=== PATIENT | female | born 1970 | race Caucasian/White ===

== ENCOUNTER 2019-07-26 18:10 | Inpatient (IN) | payer OTHER ==
[~2019-07-26] VITALS: Ht 160 cm; Wt 93.9 kg
--- NOTE | 2019-07-26 18:25 | NUR ---
ED Nurse Note: pt arrives from work via [employer] for syncope and rectal bleeding x 3-4 episodes today. pt arrives with pale skin signs and nausea. no active vomiting or rectal bleeding upon arrival. does state abd cramping and some bloating. abd soft slightly tender with palp pt relates bright red blood in large amt with small amt diarrhea. lungs cta
--- NOTE | 2019-07-26 18:45 | NUR ---
pt's PCP is Dr. Yefri Love [facility]. telephone number: [phone]
[2019-07-26 18:46] VITALS: BP 129/82
[2019-07-26 18:47] LABS: ANION GAP 10 mmol/L (5-15); BLOOD UREA NITROGEN 7 mg/dL (7-18); CALCIUM 9.1 MG/DL (8.5-10.1); CARBON DIOXIDE 26 MMOL/L (21-32); CHLORIDE 107 MMOL/L (98-107); CREATININE 0.8 MG/DL (0.55-1.30); POTASSIUM 3.6 MMOL/L (3.5-5.1); SODIUM 143 MMOL/L (136-145)
[2019-07-26 18:49] LABS: INR 0.9 (0.9-1.1)
[2019-07-26 19:01] LABS: ALANINE AMINOTRANSFERASE 67 U/L (12-78); ALBUMIN 3.5 G/DL (3.4-5.0); ALBUMIN/GLOBULIN RATIO 1.1 (1.0-2.7); ALKALINE PHOSPHATASE 81 U/L (46-116); ASPARTATE AMINO TRANSFERASE 42 U/L (15-37); BILIRUBIN,TOTAL 0.4 MG/DL (0.2-1.0); CKMB < 0.5 NG/ML (0.0-3.6); CREATINE KINASE 32 U/L (26-308)
[2019-07-26 19:04] LABS: BASOPHILS % (AUTO) 0.8 % (0.0-2.0); EOSINOPHILS % (AUTO) 1.7 % (0.0-3.0); HEMATOCRIT 33.6 % (37.0-47.0); HEMOGLOBIN 12.3 G/DL (12.0-16.0); LYMPHOCYTES % (AUTO) 21.7 % (20.0-45.0); MEAN CORPUSCULAR VOLUME 81 FL (80-99); MONOCYTES % (AUTO) 5.6 % (1.0-10.0); NEUTROPHILS % (AUTO) 70.2 % (45.0-75.0); PLATELET COUNT 217 K/UL (150-450); RED BLOOD COUNT 4.13 M/UL (4.20-5.40); RED CELL DISTRIBUTION WIDTH 10.9 % (11.6-14.8); WHITE BLOOD COUNT 14.1 K/UL (4.8-10.8)
--- NOTE | 2019-07-26 19:15 | NUR ---
ED Nurse Note: Recieved pt on robert awake, alert and oriented x 4, pt here with c/o lower gi bleed and near syncopal episode, pt is on cardiac monitioring,, v/s stable, patent iv line in right ac, pt ahs mild abdominal pain at 7/10, no cp, no sob, spouse at bedside, will resume care as ordered as pt waits for results and disposition.
[2019-07-26 20:30] VITALS: BP 133/83
[2019-07-26] MEDS ORDERED: Isovue-300 100ml vial INJ PRN (20:45)
--- NOTE | 2019-07-26 22:00 | Emergency Room Report ---
History of Present Illness General Chief Complaint: Gastrointestinal Bleed Source: Patient Present Illness HPI This patient states that today she noted multiple episodes of bright red blood with a couple bowel movements. She states that there was a large amount of blood. She states that she was at work and she developed some cramping in her abdomen and then became lightheaded and had a syncopal episode. She did not have trauma. She denies pain at this time. She denies recent illness. She denies diarrhea. She denies travel out of the country. She has no other complaints. Allergies: Coded Allergies: CODEINE (Verified Allergy, Unknown, 07/26/19) NAPROXEN (Verified Allergy, Unknown, 07/26/19) Patient History Past Medical History: none, see triage record Social History: Denies: smoking, alcohol use, drug use Last Menstrual Period: 07/05/19 Now: No Reviewed Nursing Documentation: PMH: Agreed; PSxH: Agreed Nursing Documentation-PMH Past Medical History: No History, Except For History Of Psychiatric Problem: Yes - BIPOLAR Review of Systems All Other Systems: negative except mentioned in HPI Physical Exam Vital Signs Date Time Temp Pulse Resp B/P (MAP) Pulse Ox O2 Delivery O2 Flow Rate FiO2 07/26/19 18:07 98.8 98 18 134/88 (103) 99 Room Air Sp02 EP Interpretation: reviewed, normal General Appearance: no apparent distress, alert, GCS 15, non-toxic Head: normocephalic, atraumatic Eyes: bilateral eye normal inspection, bilateral eye PERRL ENT: hearing grossly normal, normal pharynx, no angioedema, normal voice Neck: full range of motion, supple/symm/no masses Respiratory: chest non-tender, lungs clear, normal breath sounds, no respiratory distress, no retraction, no accessory muscle use, speaking full sentences Cardiovascular #1: regular rate, rhythm, no edema Gastrointestinal: normal bowel sounds, soft, non-distended, no guarding, no rebound, tenderness - TTP in the LLQ Rectal: other - Bright red blood in rectal vault Musculoskeletal: back normal, gait/station normal, normal range of motion, non- tender Neurologic: alert, oriented x3, responsive, motor strength/tone normal, sensory intact, speech normal Psychiatric: judgement/insight normal, memory normal, mood/affect normal, no suicidal/homicidal ideation Skin: no rash, rash Medical Decision Making Diagnostic Impression: Primary Impression: Bright red blood per rectum Additional Impressions: Diverticulitis Lower GI bleed ER Course This patient presented with abdominal cramping and bright red blood per rectum. Patient was mildly tender to palpation on exam. Initial labs are unremarkable with no anemia. The patient underwent CT of the abdomen pelvis for abdominal pain and was found to have diverticulitis. I did do a rectal exam the patient had a significant amount of bleeding rectally. Although, the patient's hemoglobin and hematocrit were normal at that time I was concerned this patient could decompensate given the amount of blood identified on rectal exam. The patient was admitted for further monitoring and evaluation by GI for a lower GI bleed and diverticulitis. Laboratory Tests Test 07/26/19 18:21 07/26/19 21:45 White Blood Count 14.1 K/UL (4.8-10.8) H Red Blood Count 4.13 M/UL (4.20-5.40) L Hemoglobin 12.3 G/DL (12.0-16.0) Hematocrit 33.6 % (37.0-47.0) L Mean Corpuscular Volume 81 FL (80-99) Mean Corpuscular Hemoglobin 29.7 PG (27.0-31.0) Mean Corpuscular Hemoglobin Concent 36.5 G/DL (32.0-36.0) H Red Cell Distribution Width 10.9 % (11.6-14.8) L Platelet Count 217 K/UL (150-450) Mean Platelet Volume 6.9 FL (6.5-10.1) Neutrophils (%) (Auto) 70.2 % (45.0-75.0) Lymphocytes (%) (Auto) 21.7 % (20.0-45.0) Monocytes (%) (Auto) 5.6 % (1.0-10.0) Eosinophils (%) (Auto) 1.7 % (0.0-3.0) Basophils (%) (Auto) 0.8 % (0.0-2.0) Prothrombin Time 9.6 SEC (9.30-11.50) Prothrombin Time INR 0.9 (0.9-1.1) PTT 24 SEC (23-33) Sodium Level 143 MMOL/L (136-145) Potassium Level 3.6 MMOL/L (3.5-5.1) Chloride Level 107 MMOL/L (98-107) Carbon Dioxide Level 26 MMOL/L (21-32) Anion Gap 10 mmol/L (5-15) Blood Urea Nitrogen 7 mg/dL (7-18) Creatinine 0.8 MG/DL (0.55-1.30) Estimate Glomerular Filtration Rate > 60 mL/min (>60) Glucose Level 143 MG/DL (74-106) H Calcium Level 9.1 MG/DL (8.5-10.1) Total Bilirubin 0.4 MG/DL (0.2-1.0) Aspartate Amino Transferase (AST) 42 U/L (15-37) H Alanine Aminotransferase (ALT) 67 U/L (12-78) Alkaline Phosphatase 81 U/L (46-116) Total Creatine Kinase 32 U/L (26-308) Creatine Kinase MB < 0.5 NG/ML (0.0-3.6) Creatine Kinase MB Relative Index 1.5 Troponin I 0.000 ng/mL (0.000-0.056) Total Protein 6.8 G/DL (6.4-8.2) Albumin 3.5 G/DL (3.4-5.0) Globulin 3.3 g/dL Albumin/Globulin Ratio 1.1 (1.0-2.7) Urine Color Pale yellow Urine Appearance Clear Urine pH 6.5 (4.5-8.0) Urine Specific [place] 1.005 (1.005-1.035) Urine Protein 1+ (NEGATIVE) H Urine Glucose (UA) Negative (NEGATIVE) Urine Ketones Negative (NEGATIVE) Urine Blood 5+ (NEGATIVE) H Urine Nitrite Negative (NEGATIVE) Urine Bilirubin Negative (NEGATIVE) Urine Urobilinogen Normal MG/DL (0.0-1.0) Urine Leukocyte Esterase Negative (NEGATIVE) Urine RBC Pending Urine WBC Pending Urine Squamous Epithelial Cells Pending Urine Bacteria Pending Urine Opiates Screen Pending Urine Barbiturates Screen Pending Phencyclidine (PCP) Screen Pending Urine Amphetamines Screen Pending Urine Benzodiazepines Screen Pending Urine Cocaine Screen Pending Urine Marijuana (THC) Screen Pending EKG Diagnostic Results Rate: normal Rhythm: NSR ST Segments: no acute changes Rhythm Strip Diag. Results EP Interpretation: yes Rate: 80's Rhythm: NSR, no PVC's, no ectopy CT/MRI/US Diagnostic Results CT/MRI/US Diagnostic Results : Imaging Test Ordered: CT abd/pelvis Impression Impression: Somewhat unusual appearing isolated sigmoid diverticula with slight stranding of the peridiverticular fat, suspicious for early acute diverticulitis Enlarged fatty liver Borderline splenomegaly Incidental finding of small exophytic uterine fibroid This agrees with the preliminary interpretation provided overnight by [facility] service. Last Vital Signs Date Time Temp Pulse Resp B/P (MAP) Pulse Ox O2 Delivery O2 Flow Rate FiO2 07/26/19 18:46 88 15 Room Air 07/26/19 18:46 129/82 99 07/26/19 18:07 98.8 Status: improved Disposition: ADMITTED INPATIENT Condition: Serious Scripts Ciprofloxacin (CIPRO) 500 Mg/5 Ml Isabel.mc.rec 500 MG PO EVERY 12 HOURS for 10 Days, CAP Prov: Nakul George MD 07/30/19 Metronidazole* (FLAGYL*) 500 Mg Tablet 500 MG ORAL Q8HR for 10 Days, TAB Prov: Nakul George MD 07/30/19 Referrals: NOT CHOSEN IPA/,REFERRING (PCP) Lisa Sims DO Jul 26, 2019 22:00
--- NOTE | 2019-07-26 22:00 | NUR ---
ED Nurse Note: Pt continues to rest inb ed,a wake and alert, states pain levels increasing and asking for pain meds, pt medicated as ordered, no cp, no sob, pt given iv antibiotics, tolerating well, no s/s opf adverse reaction noted, site intact and patent, pt to be admitted to hospital, will continue to closely monitor and send to floor bed when available.
[2019-07-26 22:09] LABS: APPEARANCE,URINE CLEAR; BILIRUBIN, URINE NEGATIVE (NEGATIVE); COLOR,URINE PALE YELLOW; GLUCOSE, URINE (UA) NEGATIVE (NEGATIVE); KETONES,URINE NEGATIVE (NEGATIVE); LEUKOCYTE ESTERASE ,URINE NEGATIVE (NEGATIVE); NITRITE,URINE NEGATIVE (NEGATIVE); PH,URINE 6.5 (4.5-8.0); PROTEIN,URINE 1+ (NEGATIVE); UROBILINOGEN,URINE NORMAL MG/DL (0.0-1.0)
[2019-07-26 22:30] VITALS: BP 124/71
--- NOTE | 2019-07-26 22:32 | Diagnostic Imaging Report ---
Clinical Indication: Abdominal pain and rectal bleeding Technique: No oral contrast utilized, per emergency room physician request IV administration nonionic contrast. Venous phase spiral acquisition obtained through the abdomen and pelvis. Multiplanar reconstructions were generated. Total dose length product 960 mGycm. CTDIvol(s) 18 mGy. Dose reduction achieved using automated exposure control Comparison: none Findings: At the level of the mid sigmoid, there is what may be an unusual appearing diverticulum, with associated slight stranding of the perisigmoid fat. No other diverticula demonstrated. The appendix is not definitely visualized, but no findings to suggest acute appendicitis are evident. No small bowel distention. No free or loculated intraperitoneal gas or fluid is evident. The distal esophagus, stomach, duodenum are unremarkable. The liver is markedly enlarged. There is diffuse low-attenuation, consistent with fatty change. No focal abnormality. There is some sparing in segment 5 laterally. The gallbladder, bile ducts, pancreas are unremarkable. The spleen is enlarged, measuring 14.3 cm long axis dimension. The adrenals and kidneys are unremarkable. There are numerous but nonenlarged retroperitoneal nodes demonstrated. No pelvic mass or adenopathy. There is a small exophytic fibroid coming off of the uterus. The bladder is unremarkable. The included lung bases are clear. The bones are unremarkable. Impression: Somewhat unusual appearing isolated sigmoid diverticula with slight stranding of the peridiverticular fat, suspicious for early acute diverticulitis Enlarged fatty liver Borderline splenomegaly Incidental finding of small exophytic uterine fibroid This agrees with the preliminary interpretation provided overnight by [facility]. The CT scanner at [facility] is accredited by the [employer] and the scans are performed using protocols designed to limit radiation exposure to as low as reasonably achievable to attain images of sufficient resolution adequate for diagnostic evaluation.
[2019-07-26] MEDS ORDERED: metroNIDAZOLE 500mg tab ORAL ONE (22:45)
--- NOTE | 2019-07-26 22:45 | NUR ---
Registration notified of the admission.
[2019-07-26] MEDS ORDERED: LITHIUM CARBON300 MG ORAL (23:05)
[2019-07-26] MEDS ORDERED: ZYPREXA10 MG ORAL (23:12)
[2019-07-26] MEDS ORDERED: SERTRALINE20 MG/1 M1 PO (23:12)
[2019-07-27] MEDS ORDERED: Morphine Sulfate 4mg/ml Inj (IV USE ONLY) IVP ONE
--- NOTE | 2019-07-27 00:25 | NUR ---
ED Nurse Note: Pt being admitted to floor bed, report called to floor nurse BRETT Murphy, pt in bed awake and alert, iv site patent, belongings list completed and med rec, pt being taken to floor bed via gurney with nilda-faustino bland noted during pt transport.
[2019-07-27 00:30] VITALS: BP 121/77
--- NOTE | 2019-07-27 01:10 | NUR ---
NURSE NOTES: Received pt from [facility], ED. Pt arrived to unit @0055. Pt transferred into bed in room 410-2. AAO x 4, on room air. Ambulatory. is at bedside. Vitals obtained 98.3F, 89HR, 17RR, 100% O2, 121/77 BP. Assessment done. No c/o pain. No respiratory distress noted. Skin is intact. IV L AC 18G intact and patent. Meds recon done. All belongings reviewed and will be sent with except cell phone. Received order from Dr. Lancaster and carried out. Pt is on NPO except meds. Bed locked, lowest position, alarm on, side rails up x 2, call light within reach. Will continue to monitor.
[2019-07-27] MEDS ORDERED: Morphine Sulfate 2mg/ml Inj(IV/IM USE ONLY) IVP PRN (01:30)
[2019-07-27] MEDS ORDERED: Morphine Sulfate 4mg/ml Inj (IV USE ONLY) IVP PRN (01:30)
[2019-07-27] MEDS: cefTRIAXone 1 GM in D5W 55 ML IVPB SCH (03:37)
[2019-07-27 04:00] VITALS: BP 169/99
--- NOTE | 2019-07-27 06:32 | NUR ---
NURSE NOTES: will bring [place] to verify with pharmacy.
--- NOTE | 2019-07-27 07:03 | NUR ---
NURSE NOTES: Left message Dr. Lancaster that pt BP 171/112 @0000, 166/95 @0600. Also, pt has allergy to Codenine and she feels agitation after receiving Morphine from ED. She doesn't want Morphine.
[2019-07-27 07:23] LABS: BASOPHILS % (AUTO) 0.6 % (0.0-2.0); EOSINOPHILS % (AUTO) 1.1 % (0.0-3.0); HEMATOCRIT 30.1 % (37.0-47.0); HEMOGLOBIN 10.2 G/DL (12.0-16.0); LYMPHOCYTES % (AUTO) 17.4 % (20.0-45.0); MEAN CORPUSCULAR VOLUME 87 FL (80-99); MONOCYTES % (AUTO) 5.2 % (1.0-10.0); NEUTROPHILS % (AUTO) 75.7 % (45.0-75.0); PLATELET COUNT 183 K/UL (150-450); RED BLOOD COUNT 3.47 M/UL (4.20-5.40); RED CELL DISTRIBUTION WIDTH 11.5 % (11.6-14.8)
--- NOTE | 2019-07-27 07:30 | NUR ---
NURSE NOTES: Received pt from BRETT CARPIO. pt is alert and orient x4. pt is in RA, no SOB or acute respiratory distress noted. pt has intact iv access LAC 18g SL. Pt is aware abbout to be NPO. Dr GODWIN notified about HB 10.2 and other lab results and V/S, No new order to RN. all needs attended, bed is locked and is in the lowest position. SCD is on. call light within easy reach. will continue to monitor. Will continue to monitor.
--- NOTE | 2019-07-27 07:32 | NUR ---
NURSE NOTES: Received call from Dr. Lancaster and order. DC Morphine and Clonidine 0.1mg PO Q4 PRN for >160 systole
[2019-07-27 07:46] LABS: INR 0.9 (0.9-1.1)
--- NOTE | 2019-07-27 07:50 | NUR ---
HAND-OFF: Report given to BRETT Thomason.
[2019-07-27 08:00] VITALS: BP 147/83
[2019-07-27 08:09] LABS: ANION GAP 7 mmol/L (5-15); BLOOD UREA NITROGEN 4 mg/dL (7-18); CALCIUM 8.2 MG/DL (8.5-10.1); CARBON DIOXIDE 26 MMOL/L (21-32); CHLORIDE 110 MMOL/L (98-107); CREATININE 0.8 MG/DL (0.55-1.30); PHOSPHORUS 2.9 MG/DL (2.5-4.9); POTASSIUM 3.7 MMOL/L (3.5-5.1); SODIUM 143 MMOL/L (136-145)
[2019-07-27] MEDS: Sertraline 100mg tab ORAL SCH (08:51)
[2019-07-27] MEDS: OLANZapine 10mg tab ORAL SCH (08:51)
--- NOTE | 2019-07-27 11:06 | Diagnostic Imaging Report ---
Indication: Shortness of breath Technique: One view of the chest Comparison: none Findings: Lungs and pleural spaces are clear. Heart size is normal. Impression: No acute process
[2019-07-27 12:00] VITALS: BP 144/86
--- NOTE | 2019-07-27 12:49 | Consultation ---
History of Present Illness General Date patient seen: Jul 27, 2019 Chief Complaint: Gastrointestinal Bleed Reason for Consultation: inpatient management Present Illness HPI 49 year old female with hx of Bipolar presented to ER with CC of bright red blood with a couple bowel movements. She states that there was a large amount of blood. She also had some cramping in her abdomen and then became lightheaded and had a syncopal episode. The CT of abdomen showed sigmoid diverticuli or/and early diverticulitis She is admitted for further management. Since arriving to floor, she has not had any BM. Allergies: Coded Allergies: CODEINE (Verified Allergy, Unknown, 07/26/19) NAPROXEN (Verified Allergy, Unknown, 07/26/19) Medication History Scheduled Mobeetie Carbonate* (Mobeetie*), 1,200 MG ORAL BEDTIME, (Reported) Olanzapine* (Zyprexa*), 10 MG ORAL DAILY, (Reported) Sertraline Hcl (Sertraline Hcl), 100 MG PO DAILY, (Reported) Patient History Healthcare decision maker Resuscitation status Full Code Advanced Directive on File Past Medical/Surgical History Past Medical/Surgical History: (1) Bipolar 1 disorder (2) Lower GI bleed (3) Diverticulitis Review of Systems All Other Systems: negative except mentioned in HPI Physical Exam General Appearance: WD/WN Lines, tubes and drains: peripheral HEENT: normocephalic, atraumatic Neck: non-tender, normal alignment Respiratory/Chest: chest wall non-tender Cardiovascular/Chest: normal peripheral pulses Abdomen: normal bowel sounds, no organomegaly Genitourinary/Rectal: normal genital exam Last 24 Hour Vital Signs Date Time Temp Pulse Resp B/P (MAP) Pulse Ox O2 Delivery O2 Flow Rate FiO2 07/27/19 12:00 99.2 76 18 144/86 (105) 95 07/27/19 09:00 Room Air 07/27/19 08:00 98.4 89 19 147/83 (104) 97 07/27/19 04:00 98.4 93 20 169/99 (122) 94 07/27/19 00:50 98.4 98 16 121/77 100 Room Air 07/27/19 00:46 Room Air 07/27/19 00:30 98.4 98 16 121/77 100 Room Air 07/26/19 22:30 98.8 105 16 124/71 99 Room Air 07/26/19 20:30 98.8 83 16 133/83 99 Room Air 07/26/19 18:46 88 15 Room Air 07/26/19 18:46 88 15 129/82 99 Room Air 07/26/19 18:07 98.8 98 18 134/88 (103) 99 Room Air Intake and Output 07/26/19 07/27/19 19:00 07:00 Intake Total 1000 ml 55 ml Output Total 5 ml Balance 1000 ml 50 ml Intake Oral 0 ml IV Total 1000 ml 55 ml Output Drainage Total 5 ml # Voids 2 # Bowel Movements 1 Laboratory Tests Test 07/26/19 18:21 07/26/19 21:45 07/27/19 05:22 White Blood Count 14.1 K/UL (4.8-10.8) H 14.0 K/UL (4.8-10.8) H Red Blood Count 4.13 M/UL (4.20-5.40) L 3.47 M/UL (4.20-5.40) L Hemoglobin 12.3 G/DL (12.0-16.0) 10.2 G/DL (12.0-16.0) L Hematocrit 33.6 % (37.0-47.0) L 30.1 % (37.0-47.0) L Mean Corpuscular Volume 81 FL (80-99) 87 FL (80-99) Mean Corpuscular Hemoglobin 29.7 PG (27.0-31.0) 29.5 PG (27.0-31.0) Mean Corpuscular Hemoglobin Concent 36.5 G/DL (32.0-36.0) H 34.1 G/DL (32.0-36.0) Red Cell Distribution Width 10.9 % (11.6-14.8) L 11.5 % (11.6-14.8) L Platelet Count 217 K/UL (150-450) 183 K/UL (150-450) Mean Platelet Volume 6.9 FL (6.5-10.1) 8.1 FL (6.5-10.1) Neutrophils (%) (Auto) 70.2 % (45.0-75.0) 75.7 % (45.0-75.0) H Lymphocytes (%) (Auto) 21.7 % (20.0-45.0) 17.4 % (20.0-45.0) L Monocytes (%) (Auto) 5.6 % (1.0-10.0) 5.2 % (1.0-10.0) Eosinophils (%) (Auto) 1.7 % (0.0-3.0) 1.1 % (0.0-3.0) Basophils (%) (Auto) 0.8 % (0.0-2.0) 0.6 % (0.0-2.0) Prothrombin Time 9.6 SEC (9.30-11.50) 9.9 SEC (9.30-11.50) Prothromb Time International Ratio 0.9 (0.9-1.1) 0.9 (0.9-1.1) Activated Partial Thromboplast Time 24 SEC (23-33) Sodium Level 143 MMOL/L (136-145) 143 MMOL/L (136-145) Potassium Level 3.6 MMOL/L (3.5-5.1) 3.7 MMOL/L (3.5-5.1) Chloride Level 107 MMOL/L (98-107) 110 MMOL/L (98-107) H Carbon Dioxide Level 26 MMOL/L (21-32) 26 MMOL/L (21-32) Anion Gap 10 mmol/L (5-15) 7 mmol/L (5-15) Blood Urea Nitrogen 7 mg/dL (7-18) 4 mg/dL (7-18) L Creatinine 0.8 MG/DL (0.55-1.30) 0.8 MG/DL (0.55-1.30) Estimat Glomerular Filtration Rate > 60 mL/min (>60) > 60 mL/min (>60) Glucose Level 143 MG/DL (74-106) H 108 MG/DL (74-106) H Calcium Level 9.1 MG/DL (8.5-10.1) 8.2 MG/DL (8.5-10.1) L Total Bilirubin 0.4 MG/DL (0.2-1.0) Aspartate Amino Transf (AST/SGOT) 42 U/L (15-37) H Alanine Aminotransferase (ALT/SGPT) 67 U/L (12-78) Alkaline Phosphatase 81 U/L (46-116) Total Creatine Kinase 32 U/L (26-308) Creatine Kinase MB < 0.5 NG/ML (0.0-3.6) Creatine Kinase MB Relative Index 1.5 Troponin I 0.000 ng/mL (0.000-0.056) Total Protein 6.8 G/DL (6.4-8.2) Albumin 3.5 G/DL (3.4-5.0) Globulin 3.3 g/dL Albumin/Globulin Ratio 1.1 (1.0-2.7) Urine Color Pale yellow Urine Appearance Clear Urine pH 6.5 (4.5-8.0) Urine Specific [place] 1.005 (1.005-1.035) Urine Protein 1+ (NEGATIVE) H Urine Glucose (UA) Negative (NEGATIVE) Urine Ketones Negative (NEGATIVE) Urine Blood 5+ (NEGATIVE) H Urine Nitrite Negative (NEGATIVE) Urine Bilirubin Negative (NEGATIVE) Urine Urobilinogen Normal MG/DL (0.0-1.0) Urine Leukocyte Esterase Negative (NEGATIVE) Urine RBC 2-4 /HPF (0 - 2) H Urine WBC 0-2 /HPF (0 - 2) Urine Squamous Epithelial Cells Few /LPF (NONE/OCC) Urine Bacteria Few /HPF (NONE) Urine Opiates Screen Negative (NEGATIVE) Urine Barbiturates Screen Negative (NEGATIVE) Phencyclidine (PCP) Screen Negative (NEGATIVE) Urine Amphetamines Screen Negative (NEGATIVE) Urine Benzodiazepines Screen Negative (NEGATIVE) Urine Cocaine Screen Negative (NEGATIVE) Urine Marijuana (THC) Screen Negative (NEGATIVE) Phosphorus Level 2.9 MG/DL (2.5-4.9) Magnesium Level 1.7 MG/DL (1.8-2.4) L Height (Feet): 5 Height (Inches): 3.00 Weight (Pounds): 207 Medications Current Medications Medications (Trade) Dose Ordered Sig/Oz Route PRN Reason Start Time Stop Time Status Last Admin Dose Admin Acetaminophen (Tylenol) 650 mg Q6H PRN ORAL Mild Pain/Temp > 100.5 07/27/19 01:30 08/26/19 01:29 07/27/19 12:27 Ceftriaxone Sodium 1 gm/ Dextrose 55 ml @ 110 mls/hr Q24H IVPB 07/27/19 02:00 08/03/19 01:59 07/27/19 03:37 Clonidine HCl (Catapres Tab) 0.1 mg Q4H PRN ORAL >160 SYSTOLE 07/27/19 07:30 08/26/19 07:29 Iopamidol (Isovue-300 100ml) 100 ml NOW PRN INJ Radiology Procedure 07/26/19 20:45 07/28/19 20:44 Metronidazole 100 ml @ 100 mls/hr Q8H IVPB 07/27/19 07:00 08/03/19 06:59 07/27/19 06:28 Olanzapine (ZyPREXA) 10 mg DAILY ORAL 07/27/19 09:00 08/26/19 08:59 07/27/19 08:51 Ondansetron HCl (Zofran) 4 mg Q4H PRN IVP Nausea & Vomiting 07/27/19 01:30 08/26/19 01:29 Patient Own Medication (Patient's Own Med) 4 ea BEDTIME ORAL 07/27/19 21:00 08/26/19 20:59 Sertraline HCl (Zoloft) 100 mg DAILY ORAL 07/27/19 09:00 08/26/19 08:59 07/27/19 08:51 Assessment/Plan Problem List: (1) Lower GI bleed ICD Codes: K92.2 - Gastrointestinal hemorrhage, unspecified SNOMED: 77427765 (2) Diverticulitis ICD Codes: K57.92 - Diverticulitis of intestine, part unspecified, without perforation or abscess without bleeding SNOMED: 781176041 Assessment/Plan: NPO iv fluids iv abx check electrolytes GI evaluation continue psychiatric meds dvt prophylaxis Nakul George MD Jul 27, 2019 12:49
--- NOTE | 2019-07-27 14:37 | NUR ---
Case Management Clinicals faxed to Ran [phone].
--- NOTE | 2019-07-27 14:47 | NUR ---
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 98.7 HR 98 RR 18 B/P 134/88 WBC 14.1 AST 42 CXR= NO ACUTE PROCESS CT ABD/PEL=Somewhat unusual appearing isolated sigmoid diverticula with slight stranding of the peridiverticular fat, suspicious for early acute diverticulitis IS: ZOSYN IV FLAGYL IV CIPRO IV MED/SURG STATUS ADMITTED TO MED/SURG
--- NOTE | 2019-07-27 15:48 | Consultation ---
History of Present Illness General Date patient seen: Jul 27, 2019 Chief Complaint: Gastrointestinal Bleed Reason for Consultation: inpatient management Present Illness HPI 49 y/o F with hx of bipolar disease presents to ED on 07/26 with bright red blood per rectum, abdominal cramping, lightheadedness and syncopal episode Denied diarrhea, recent travel Allergies: Coded Allergies: CODEINE (Verified Allergy, Unknown, 07/26/19) NAPROXEN (Verified Allergy, Unknown, 07/26/19) Medication History Scheduled [place] Carbonate* ([place]*), 1,200 MG ORAL BEDTIME, (Reported) Olanzapine* (Zyprexa*), 10 MG ORAL DAILY, (Reported) Sertraline Hcl (Sertraline Hcl), 100 MG PO DAILY, (Reported) Patient History Healthcare decision maker Resuscitation status Full Code Advanced Directive on File Patient History Narrative Pmhx: as above Shx: Denies: smoking, alcohol use, drug use Fhx: non contributory Physical Exam Physical Exam Narrative General Appearance: no apparent distress, alert, non-toxic Head: normocephalic, atraumatic Eyes: bilateral eye normal inspection, bilateral eye PERRL ENT: hearing grossly normal, normal pharynx, no angioedema, normal voice Neck: full range of motion, supple/symm/no masses Respiratory: chest non-tender, lungs clear, normal breath sounds, no respiratory distress, no retraction, no accessory muscle use, speaking full sentences Cardiovascular: regular rate, rhythm, no edema Gastrointestinal: normal bowel sounds, non tender, soft, non-distended, no guarding, no rebound Rectal: deferred Musculoskeletal: back normal, gait/station normal, normal range of motion, non- tender Skin: no rash, rash Last 24 Hour Vital Signs Date Time Temp Pulse Resp B/P (MAP) Pulse Ox O2 Delivery O2 Flow Rate FiO2 07/27/19 12:57 99.2 07/27/19 12:00 99.2 76 18 144/86 (105) 95 07/27/19 09:00 Room Air 07/27/19 08:00 98.4 89 19 147/83 (104) 97 07/27/19 04:00 98.4 93 20 169/99 (122) 94 07/27/19 00:50 98.4 98 16 121/77 100 Room Air 07/27/19 00:46 Room Air 07/27/19 00:30 98.4 98 16 121/77 100 Room Air 07/26/19 22:30 98.8 105 16 124/71 99 Room Air 07/26/19 20:30 98.8 83 16 133/83 99 Room Air 07/26/19 18:46 88 15 Room Air 07/26/19 18:46 88 15 129/82 99 Room Air 07/26/19 18:07 98.8 98 18 134/88 (103) 99 Room Air Intake and Output 07/26/19 07/27/19 19:00 07:00 Intake Total 1000 ml 55 ml Output Total 5 ml Balance 1000 ml 50 ml Intake Oral 0 ml IV Total 1000 ml 55 ml Output Drainage Total 5 ml # Voids 2 # Bowel Movements 1 Laboratory Tests Test 07/26/19 18:21 07/26/19 21:45 07/27/19 05:22 White Blood Count 14.1 K/UL (4.8-10.8) H 14.0 K/UL (4.8-10.8) H Red Blood Count 4.13 M/UL (4.20-5.40) L 3.47 M/UL (4.20-5.40) L Hemoglobin 12.3 G/DL (12.0-16.0) 10.2 G/DL (12.0-16.0) L Hematocrit 33.6 % (37.0-47.0) L 30.1 % (37.0-47.0) L Mean Corpuscular Volume 81 FL (80-99) 87 FL (80-99) Mean Corpuscular Hemoglobin 29.7 PG (27.0-31.0) 29.5 PG (27.0-31.0) Mean Corpuscular Hemoglobin Concent 36.5 G/DL (32.0-36.0) H 34.1 G/DL (32.0-36.0) Red Cell Distribution Width 10.9 % (11.6-14.8) L 11.5 % (11.6-14.8) L Platelet Count 217 K/UL (150-450) 183 K/UL (150-450) Mean Platelet Volume 6.9 FL (6.5-10.1) 8.1 FL (6.5-10.1) Neutrophils (%) (Auto) 70.2 % (45.0-75.0) 75.7 % (45.0-75.0) H Lymphocytes (%) (Auto) 21.7 % (20.0-45.0) 17.4 % (20.0-45.0) L Monocytes (%) (Auto) 5.6 % (1.0-10.0) 5.2 % (1.0-10.0) Eosinophils (%) (Auto) 1.7 % (0.0-3.0) 1.1 % (0.0-3.0) Basophils (%) (Auto) 0.8 % (0.0-2.0) 0.6 % (0.0-2.0) Prothrombin Time 9.6 SEC (9.30-11.50) 9.9 SEC (9.30-11.50) Prothromb Time International Ratio 0.9 (0.9-1.1) 0.9 (0.9-1.1) Activated Partial Thromboplast Time 24 SEC (23-33) Sodium Level 143 MMOL/L (136-145) 143 MMOL/L (136-145) Potassium Level 3.6 MMOL/L (3.5-5.1) 3.7 MMOL/L (3.5-5.1) Chloride Level 107 MMOL/L (98-107) 110 MMOL/L (98-107) H Carbon Dioxide Level 26 MMOL/L (21-32) 26 MMOL/L (21-32) Anion Gap 10 mmol/L (5-15) 7 mmol/L (5-15) Blood Urea Nitrogen 7 mg/dL (7-18) 4 mg/dL (7-18) L Creatinine 0.8 MG/DL (0.55-1.30) 0.8 MG/DL (0.55-1.30) Estimat Glomerular Filtration Rate > 60 mL/min (>60) > 60 mL/min (>60) Glucose Level 143 MG/DL (74-106) H 108 MG/DL (74-106) H Calcium Level 9.1 MG/DL (8.5-10.1) 8.2 MG/DL (8.5-10.1) L Total Bilirubin 0.4 MG/DL (0.2-1.0) Aspartate Amino Transf (AST/SGOT) 42 U/L (15-37) H Alanine Aminotransferase (ALT/SGPT) 67 U/L (12-78) Alkaline Phosphatase 81 U/L (46-116) Total Creatine Kinase 32 U/L (26-308) Creatine Kinase MB < 0.5 NG/ML (0.0-3.6) Creatine Kinase MB Relative Index 1.5 Troponin I 0.000 ng/mL (0.000-0.056) Total Protein 6.8 G/DL (6.4-8.2) Albumin 3.5 G/DL (3.4-5.0) Globulin 3.3 g/dL Albumin/Globulin Ratio 1.1 (1.0-2.7) Urine Color Pale yellow Urine Appearance Clear Urine pH 6.5 (4.5-8.0) Urine Specific [place] 1.005 (1.005-1.035) Urine Protein 1+ (NEGATIVE) H Urine Glucose (UA) Negative (NEGATIVE) Urine Ketones Negative (NEGATIVE) Urine Blood 5+ (NEGATIVE) H Urine Nitrite Negative (NEGATIVE) Urine Bilirubin Negative (NEGATIVE) Urine Urobilinogen Normal MG/DL (0.0-1.0) Urine Leukocyte Esterase Negative (NEGATIVE) Urine RBC 2-4 /HPF (0 - 2) H Urine WBC 0-2 /HPF (0 - 2) Urine Squamous Epithelial Cells Few /LPF (NONE/OCC) Urine Bacteria Few /HPF (NONE) Urine Opiates Screen Negative (NEGATIVE) Urine Barbiturates Screen Negative (NEGATIVE) Phencyclidine (PCP) Screen Negative (NEGATIVE) Urine Amphetamines Screen Negative (NEGATIVE) Urine Benzodiazepines Screen Negative (NEGATIVE) Urine Cocaine Screen Negative (NEGATIVE) Urine Marijuana (THC) Screen Negative (NEGATIVE) Phosphorus Level 2.9 MG/DL (2.5-4.9) Magnesium Level 1.7 MG/DL (1.8-2.4) L Height (Feet): 5 Height (Inches): 3.00 Weight (Pounds): 207 Medications Current Medications Medications (Trade) Dose Ordered Sig/Oz Route PRN Reason Start Time Stop Time Status Last Admin Dose Admin Acetaminophen (Tylenol) 650 mg Q6H PRN ORAL Mild Pain/Temp > 100.5 07/27/19 01:30 08/26/19 01:29 07/27/19 12:27 Ceftriaxone Sodium 1 gm/ Dextrose 55 ml @ 110 mls/hr Q24H IVPB 07/27/19 02:00 08/03/19 01:59 07/27/19 03:37 Clonidine HCl (Catapres Tab) 0.1 mg Q4H PRN ORAL >160 SYSTOLE 07/27/19 07:30 08/26/19 07:29 Iopamidol (Isovue-300 100ml) 100 ml NOW PRN INJ Radiology Procedure 07/26/19 20:45 07/28/19 20:44 Metronidazole 100 ml @ 100 mls/hr Q8H IVPB 07/27/19 07:00 08/03/19 06:59 07/27/19 14:54 Olanzapine (ZyPREXA) 10 mg DAILY ORAL 07/27/19 09:00 08/26/19 08:59 07/27/19 08:51 Ondansetron HCl (Zofran) 4 mg Q4H PRN IVP Nausea & Vomiting 07/27/19 01:30 08/26/19 01:29 Patient Own Medication (Patient's Own Med) 4 ea BEDTIME ORAL 07/27/19 21:00 08/26/19 20:59 Sertraline HCl (Zoloft) 100 mg DAILY ORAL 07/27/19 09:00 08/26/19 08:59 07/27/19 08:51 Assessment/Plan Assessment/Plan: Abx: Ceftriaxone 07/27- Cipro x 1 07/26 Assessment: Hematochezia Probable early acute diverticulitis -CT abd/p: Somewhat unusual appearing isolated sigmoid diverticula with slight stranding of the peridiverticular fat, suspicious for early acute diverticulitis. Enlarged fatty liver. Borderline splenomegaly. Incidental finding of small exophytic uterine fibroid Afebrile Mild Leukocytosis -u/a neg -CXR: no acute disease Bipolar disorder Plan: -Continue Ceftriaxone #1 and add Flagyl for diverticulitis -f/u cx -Monitor CBC/CMP, temperatures -GI f/u Thank you for this consultation. Will continue to follow along with you. Discussed with Tamy Mckay M.D. Jul 27, 2019 15:48
[2019-07-27 16:00] VITALS: BP 131/78
--- NOTE | 2019-07-27 17:55 | History & Physical ---
History and Physical History & Physicial Ralf Lancaster MD Jul 27, 2019 17:55
--- NOTE | 2019-07-27 18:21 | Consultation ---
History of Present Illness General Date patient seen: Jul 27, 2019 Reason for Hospitalization: Gastrointestinal Bleed Present Illness HPI This is a very pleasant 49-year-old female with history of bipolar disorder and fecal incontinence who presented to the emergency department at [facility] complaining of abdominal discomfort, bright red bleeding per rectum, syncopal episode. Patient states that over the past 1 to 2 days she began to notice some bright red blood in her bowel movements and was very concerned. She called her primary care physician who instructed her to come to emerge department for evaluation. States that while at work prior to episode she had a syncopal episode and was immediately brought in for evaluation. In ED identified to have gross blood on digital rectal exam. Noted to have leukocytosis. CT scan with diverticular colitis sigmoid. I was called by Dr. Lancaster to evaluate for bright red bleeding per rectum/acute diverticulitis and potential surgical intervention if necessary. Patient seen, patient evaluate, chart reviewed. Patient states abdominal discomfort is currently improved but she does still have some tenderness when she is palpated on the abdominal area mainly in the lower. Denies any current nausea vomiting fever or chills. Denies any history of prior admissions or evaluations for acute diverticulitis. Patient's family is at bedside with her. Allergies: Coded Allergies: CODEINE (Verified Allergy, Unknown, 07/26/19) NAPROXEN (Verified Allergy, Unknown, 07/26/19) Medication History Scheduled [place] Carbonate* ([place]*), 1,200 MG ORAL BEDTIME, (Reported) Olanzapine* (Zyprexa*), 10 MG ORAL DAILY, (Reported) Sertraline Hcl (Sertraline Hcl), 100 MG PO DAILY, (Reported) Patient History History Provided By: Patient, Medical Record, PMD Healthcare decision maker Resuscitation status Full Code Advanced Directive on File Past Medical/Surgical History Past Medical/Surgical History: (1) Bright red blood per rectum (2) Diverticulitis (3) Lower GI bleed (4) Bipolar 1 disorder (5) Bipolar disorder Review of Systems Review of Symptoms General ROS: no weight loss or fever Psychological ROS: no depression or mood changes, no memory loss Ophthalmic ROS: no visual changes or eye irritation ENT ROS: no nasal congestion, hearing loss, dizziness Allergy and Immunology ROS: no allergic symptoms or urticaria Hematological and Lymphatic ROS: no swollen glands, unusual bleeding or bruising Endocrine ROS: no polyuria, polydipsia, weight changes, temperature intolerance Respiratory ROS: no cough, shortness of breath, or wheezing Cardiovascular ROS: no chest pain or dyspnea on exertion Gastrointestinal ROS: denies abdominal pain, bright red blood in stool. Musculoskeletal ROS: no myalgias or arthralgias Neurological ROS: no TIA or stroke symptoms Dermatological ROS: no new or changing skin lesions, rashes or pruritis Physical Exam Physical Exam General appearance: alert, cooperative, no distress, appears stated age Head: Normocephalic, without obvious abnormality, atraumatic Eyes: conjunctivae/corneas clear. PERRL, EOM's intact. Fundi benign Throat: Lips, mucosa, and tongue normal. Teeth and gums normal Neck: supple, symmetrical, trachea midline, no adenopathy, thyroid: not enlarged, symmetric, no tenderness/mass/nodules, no carotid bruit and no JVD Lungs: clear to auscultation bilaterally Heart: regular rate and rhythm, S1, S2 normal, no murmur, click, rub or gallop Abdomen: soft, tender. Bowel sounds normal. No masses, no organomegaly Extremities: extremities normal, atraumatic, no cyanosis or edema Pulses: 2+ and symmetric Skin: Skin color, texture, turgor normal. No rashes or lesions Neurologic: Grossly normal Last 24 Hour Vital Signs Date Time Temp Pulse Resp B/P (MAP) Pulse Ox O2 Delivery O2 Flow Rate FiO2 07/27/19 12:57 99.2 07/27/19 12:00 99.2 76 18 144/86 (105) 95 07/27/19 09:00 Room Air 07/27/19 08:00 98.4 89 19 147/83 (104) 97 07/27/19 04:00 98.4 93 20 169/99 (122) 94 07/27/19 00:50 98.4 98 16 121/77 100 Room Air 07/27/19 00:46 Room Air 07/27/19 00:30 98.4 98 16 121/77 100 Room Air 07/26/19 22:30 98.8 105 16 124/71 99 Room Air 07/26/19 20:30 98.8 83 16 133/83 99 Room Air 07/26/19 18:46 88 15 Room Air 07/26/19 18:46 88 15 129/82 99 Room Air Intake and Output 07/26/19 07/27/19 19:00 07:00 Intake Total 1000 ml 55 ml Output Total 5 ml Balance 1000 ml 50 ml Intake Oral 0 ml IV Total 1000 ml 55 ml Output Drainage Total 5 ml # Voids 2 # Bowel Movements 1 Laboratory Tests Test 07/26/19 18:21 07/26/19 21:45 07/27/19 05:22 White Blood Count 14.1 K/UL (4.8-10.8) H 14.0 K/UL (4.8-10.8) H Red Blood Count 4.13 M/UL (4.20-5.40) L 3.47 M/UL (4.20-5.40) L Hemoglobin 12.3 G/DL (12.0-16.0) 10.2 G/DL (12.0-16.0) L Hematocrit 33.6 % (37.0-47.0) L 30.1 % (37.0-47.0) L Mean Corpuscular Volume 81 FL (80-99) 87 FL (80-99) Mean Corpuscular Hemoglobin 29.7 PG (27.0-31.0) 29.5 PG (27.0-31.0) Mean Corpuscular Hemoglobin Concent 36.5 G/DL (32.0-36.0) H 34.1 G/DL (32.0-36.0) Red Cell Distribution Width 10.9 % (11.6-14.8) L 11.5 % (11.6-14.8) L Platelet Count 217 K/UL (150-450) 183 K/UL (150-450) Mean Platelet Volume 6.9 FL (6.5-10.1) 8.1 FL (6.5-10.1) Neutrophils (%) (Auto) 70.2 % (45.0-75.0) 75.7 % (45.0-75.0) H Lymphocytes (%) (Auto) 21.7 % (20.0-45.0) 17.4 % (20.0-45.0) L Monocytes (%) (Auto) 5.6 % (1.0-10.0) 5.2 % (1.0-10.0) Eosinophils (%) (Auto) 1.7 % (0.0-3.0) 1.1 % (0.0-3.0) Basophils (%) (Auto) 0.8 % (0.0-2.0) 0.6 % (0.0-2.0) Prothrombin Time 9.6 SEC (9.30-11.50) 9.9 SEC (9.30-11.50) Prothromb Time International Ratio 0.9 (0.9-1.1) 0.9 (0.9-1.1) Activated Partial Thromboplast Time 24 SEC (23-33) Sodium Level 143 MMOL/L (136-145) 143 MMOL/L (136-145) Potassium Level 3.6 MMOL/L (3.5-5.1) 3.7 MMOL/L (3.5-5.1) Chloride Level 107 MMOL/L (98-107) 110 MMOL/L (98-107) H Carbon Dioxide Level 26 MMOL/L (21-32) 26 MMOL/L (21-32) Anion Gap 10 mmol/L (5-15) 7 mmol/L (5-15) Blood Urea Nitrogen 7 mg/dL (7-18) 4 mg/dL (7-18) L Creatinine 0.8 MG/DL (0.55-1.30) 0.8 MG/DL (0.55-1.30) Estimat Glomerular Filtration Rate > 60 mL/min (>60) > 60 mL/min (>60) Glucose Level 143 MG/DL (74-106) H 108 MG/DL (74-106) H Calcium Level 9.1 MG/DL (8.5-10.1) 8.2 MG/DL (8.5-10.1) L Total Bilirubin 0.4 MG/DL (0.2-1.0) Aspartate Amino Transf (AST/SGOT) 42 U/L (15-37) H Alanine Aminotransferase (ALT/SGPT) 67 U/L (12-78) Alkaline Phosphatase 81 U/L (46-116) Total Creatine Kinase 32 U/L (26-308) Creatine Kinase MB < 0.5 NG/ML (0.0-3.6) Creatine Kinase MB Relative Index 1.5 Troponin I 0.000 ng/mL (0.000-0.056) Total Protein 6.8 G/DL (6.4-8.2) Albumin 3.5 G/DL (3.4-5.0) Globulin 3.3 g/dL Albumin/Globulin Ratio 1.1 (1.0-2.7) Urine Color Pale yellow Urine Appearance Clear Urine pH 6.5 (4.5-8.0) Urine Specific [place] 1.005 (1.005-1.035) Urine Protein 1+ (NEGATIVE) H Urine Glucose (UA) Negative (NEGATIVE) Urine Ketones Negative (NEGATIVE) Urine Blood 5+ (NEGATIVE) H Urine Nitrite Negative (NEGATIVE) Urine Bilirubin Negative (NEGATIVE) Urine Urobilinogen Normal MG/DL (0.0-1.0) Urine Leukocyte Esterase Negative (NEGATIVE) Urine RBC 2-4 /HPF (0 - 2) H Urine WBC 0-2 /HPF (0 - 2) Urine Squamous Epithelial Cells Few /LPF (NONE/OCC) Urine Bacteria Few /HPF (NONE) Urine Opiates Screen Negative (NEGATIVE) Urine Barbiturates Screen Negative (NEGATIVE) Phencyclidine (PCP) Screen Negative (NEGATIVE) Urine Amphetamines Screen Negative (NEGATIVE) Urine Benzodiazepines Screen Negative (NEGATIVE) Urine Cocaine Screen Negative (NEGATIVE) Urine Marijuana (THC) Screen Negative (NEGATIVE) Phosphorus Level 2.9 MG/DL (2.5-4.9) Magnesium Level 1.7 MG/DL (1.8-2.4) L Height (Feet): 5 Height (Inches): 3.00 Weight (Pounds): 207 Medications Current Medications Medications (Trade) Dose Ordered Sig/Oz Route PRN Reason Start Time Stop Time Status Last Admin Dose Admin Acetaminophen (Tylenol) 650 mg Q6H PRN ORAL Mild Pain/Temp > 100.5 07/27/19 01:30 08/26/19 01:29 07/27/19 12:27 Ceftriaxone Sodium 1 gm/ Dextrose 55 ml @ 110 mls/hr Q24H IVPB 07/27/19 02:00 08/03/19 01:59 07/27/19 03:37 Clonidine HCl (Catapres Tab) 0.1 mg Q4H PRN ORAL >160 SYSTOLE 07/27/19 07:30 08/26/19 07:29 Iopamidol (Isovue-300 100ml) 100 ml NOW PRN INJ Radiology Procedure 07/26/19 20:45 9/14/19 20:44 Metronidazole (Flagyl) 500 mg Q8HR ORAL 07/27/19 22:00 08/03/19 21:59 Olanzapine (ZyPREXA) 10 mg DAILY ORAL 07/27/19 09:00 08/26/19 08:59 07/27/19 08:51 Ondansetron HCl (Zofran) 4 mg Q4H PRN IVP Nausea & Vomiting 07/27/19 01:30 08/26/19 01:29 Patient Own Medication (Patient's Own Med) 4 ea BEDTIME ORAL 07/27/19 21:00 08/26/19 20:59 Sertraline HCl (Zoloft) 100 mg DAILY ORAL 07/27/19 09:00 08/26/19 08:59 07/27/19 08:51 Assessment/Plan Problem List: (1) Bright red blood per rectum Assessment & Plan: This is a 49-year-old female with bright red blood per rectum and abdominal pain and leukocytosis as well as CT with acute sigmoid diverticulitis. Patient seen and evaluated. Chart reviewed. Labs reviewed. On examination patient with abdominal tenderness mainly in the left side and lower abdomen. CT scan reviewed and noted. No acute surgical intervention planned at this time. Will follow with serial abdominal examinations. Recommend bowel rest, n.p.o., IV fluids, IV antibiotics Patient having episode of acute diverticulitis and bright red bleeding. History of hemorrhoids and noted hemorrhoids on examination. Potentially bleeding hemorrhoids as well as diverticular event versus diverticulosis and diverticulitis will follow with recommendations thank you for this consultation ICD Codes: K62.5 - Hemorrhage of anus and rectum SNOMED: 92755239 (2) Diverticulitis Assessment & Plan: Findings: At the level of the mid sigmoid, there is what may be an unusual appearing diverticulum, with associated slight stranding of the perisigmoid fat. No other diverticula demonstrated. The appendix is not definitely visualized, but no findings to suggest acute appendicitis are evident. No small bowel distention. No free or loculated intraperitoneal gas or fluid is evident. The distal esophagus, stomach , duodenum are unremarkable. The liver is markedly enlarged. There is diffuse low-attenuation, consistent with fatty change. No focal abnormality. There is some sparing in segment 5 laterally. The gallbladder, bile ducts, pancreas are unremarkable. The spleen is enlarged, measuring 14.3 cm long axis dimension. The adrenals and kidneys are unremarkable. There are numerous but nonenlarged retroperitoneal nodes demonstrated. No pelvic mass or adenopathy. There is a small exophytic fibroid coming off of the uterus. The bladder is unremarkable. The included lung bases are clear. The bones are unremarkable. Impression: Somewhat unusual appearing isolated sigmoid diverticula with slight stranding of the peridiverticular fat, suspicious for early acute diverticulitis Enlarged fatty liver Borderline splenomegaly Incidental finding of small exophytic uterine fibroid ICD Codes: K57.92 - Diverticulitis of intestine, part unspecified, without perforation or abscess without bleeding SNOMED: 791380485 (3) Lower GI bleed ICD Codes: K92.2 - Gastrointestinal hemorrhage, unspecified SNOMED: 38565522 Jamie Lipscomb Jul 27, 2019 18:21
--- NOTE | 2019-07-27 19:40 | NUR ---
NURSE NOTES: Received report from BRETT Thomason. Patient A&Ox4. On room air, no signs of distress or labored breathing. IV intact, patent and infusing IV fluids. Bed in lowest position with call light in reach. Will continue with plan of care.
[2019-07-27 20:00] VITALS: BP 153/96
[2019-07-27] MEDS: LITHIUM CARBONATE 300 MG ORAL SCH (21:17)
[2019-07-27] MEDS: metroNIDAZOLE 500mg tab ORAL SCH (21:17)
--- NOTE | 2019-07-27 22:00 | History and Physical Report ---
DATE OF ADMISSION: 07/26/2019 CHIEF COMPLAINT: Lower abdominal pain as well as bloody stool. HISTORY OF PRESENT ILLNESS: This is a 49-year-old female with past medical history significant for bipolar disorder and morbid obesity, who has presented to the hospital complaining about bright red blood per rectum. It has been going on for a day. The patient had a multiple bright red bowel movements, large amount of blood. She stated that she was at work and she developed some cramping in her abdomen, then became lightheaded, and had a syncopal episode. Did not have a trauma to the head or neck. She denies any double vision. Denies any bowel or urine incontinence. Denies any diarrhea. Shortly after initial evaluation in the emergency room, the patient had a CT scan of the abdomen done in the emergency room confirmed the patient has somewhat unusual appearing isolated sigmoid diverticula with a slight stranding of the peridiverticular fat suspicious for early acute diverticulitis with the enlarged fatty liver, borderline splenomegaly, and incidental finding with small exophytic uterine fibroids. The patient subsequently was admitted to the hospital with bright red blood per rectum and most likely secondary to diverticular bleeding as well as diverticulitis. PAST MEDICAL HISTORY/PAST SURGICAL HISTORY: Significant for bipolar disorder. MEDICATIONS AT HOME: Significant for lithium, Zyprexa, and sertraline. ALLERGIES: Codeine and naproxen. SOCIAL HISTORY: Denies any smoking, alcohol, or drugs at this time. FAMILY HISTORY: Noncontributory. REVIEW OF SYSTEMS: Mostly as above. Denies any dysuria, frequency, or hematuria. Denies any hemoptysis. Denies any loss of consciousness. Denies any bowel or urine incontinence. Complained of bloody stool. Denies any seizure activity. PHYSICAL EXAMINATION: VITAL SIGNS: On admission, temperature 98.8, pulse of 98, respirations 18, and blood pressure 134/88. GENERAL: The patient is awake, responsive, and in no acute distress. HEAD AND NECK: Pupils are reactive to light. Extraocular movements intact. Neck was supple. No JVD. LUNGS: Good air entry. No wheezing or rales. Decreased air in the bases. HEART: Reveals S1 and S2. Regular rhythm. No gallops. ABDOMEN: Soft. Morbidly obese. No rebound tenderness. Bilateral lower quadrant tenderness on deep palpation. EXTREMITIES: No cyanosis, clubbing, or edema NEUROLOGIC: Cranial nerves II through XII grossly intact. Motor is 5/5 in all extremities. Gait is intact. RECTAL/GENITOURINARY: Refused and deferred. PSYCHIATRIC: Mood and affect is bipolar type 1. LABORATORY DATA: Laboratory on admission from the ER is significant for PT of 9.6, INR is 0.9, and PTT of 24. Sodium 143, potassium 3.3, chloride 107, bicarbonate 26, BUN 7, creatinine 0.8, and glucose is 143. Troponin less than 0.00. AST of 43 and ALT of 67. WBC of 14, hemoglobin 12, hematocrit 33, and platelets is 217,000. Urine drug screen is negative. Urinalysis, +1 protein, +5 blood, 2 to 4 rbc's, and negative leukocytes. Chest x-ray was done in the ER, no acute process. CT scan of the abdomen and pelvis confirmed again somewhat unusual appearing isolated sigmoid diverticula with slight stranding of the periventricular fat suspicious for early acute diverticulitis and large fatty liver. ASSESSMENT: 1. Lower abdominal pain associated with rectal bleeding, hematemesis, most likely secondary to diverticular bleed. 2. Leukocytosis, most likely secondary to diverticulitis and diverticular bleed. 3. Morbid obesity. 4. Bipolar disorder type 1. 5. Presumed obstructive sleep apnea with snoring. PLAN: Admit the patient to medical floor. We will follow up with Dr. George from Pulmonary Critical Care as well as Dr. Lipscomb consultation from General Surgery and GI consultation. Start the patient on broad-spectrum antibiotics with Flagyl and Rocephin, clear liquid diet, and DVT prophylaxis with SCD. Contraindication for heparin due to the acute bleeding. Discussed with the patient extensively with regard to the CT scan results and findings. Ralf Lancaster M.D. DR: GEORGI JOB#: [id number] CC:
[2019-07-28] VITALS: BP 169/92
[2019-07-28] MEDS: cefTRIAXone 1 GM in D5W 55 ML IVPB SCH (01:11)
[2019-07-28 04:00] VITALS: BP 127/89
[2019-07-28] MEDS: metroNIDAZOLE 500mg tab ORAL SCH ×3 (05:58→21:13)
--- NOTE | 2019-07-28 07:16 | NUR ---
HAND-OFF: Report given to BRETT Thomason.
[2019-07-28 07:27] LABS: BASOPHILS % (AUTO) 0.8 % (0.0-2.0); EOSINOPHILS % (AUTO) 2.7 % (0.0-3.0); HEMOGLOBIN 10.4 G/DL (12.0-16.0); LYMPHOCYTES % (AUTO) 19.6 % (20.0-45.0); MEAN CORPUSCULAR VOLUME 86 FL (80-99); MONOCYTES % (AUTO) 4.5 % (1.0-10.0); NEUTROPHILS % (AUTO) 72.4 % (45.0-75.0); PLATELET COUNT 167 K/UL (150-450); RED CELL DISTRIBUTION WIDTH 11.7 % (11.6-14.8); WHITE BLOOD COUNT 7.9 K/UL (4.8-10.8)
--- NOTE | 2019-07-28 07:30 | NUR ---
NURSE NOTES: Received pt from RN TAI. pt is alert and orient x4. pt is in RA, no SOB or acute respiratory distress noted. pt has intact iv access LAC 18g is running well. Dr CORONEL visited pt and he is notified about pt's lab results and V/S, no new order to RN. all needs attended, bed is locked and is in the lowest position. call light within easy reach. will continue to monitor.
[2019-07-28 07:38] LABS: INR 0.9 (0.9-1.1)
--- NOTE | 2019-07-28 07:42 | General Progress Note ---
Assessment/Plan Problem List: (1) Bipolar disorder ICD Codes: F31.9 - Bipolar disorder, unspecified SNOMED: 71112637 (2) Lower GI bleed ICD Codes: K92.2 - Gastrointestinal hemorrhage, unspecified SNOMED: 42106607 (3) Diverticulitis ICD Codes: K57.92 - Diverticulitis of intestine, part unspecified, without perforation or abscess without bleeding SNOMED: 439020834 Assessment/Plan: abx clears fu H&H colonoscopy on hold given active diverticulitis Subjective ROS Limited/Unobtainable: Yes Allergies: Coded Allergies: CODEINE (Verified Allergy, Unknown, 07/26/19) NAPROXEN (Verified Allergy, Unknown, 07/26/19) Objective Last 24 Hour Vital Signs Date Time Temp Pulse Resp B/P (MAP) Pulse Ox O2 Delivery O2 Flow Rate FiO2 07/28/19 04:00 98.0 84 18 127/89 (102) 96 07/28/19 01:10 169/92 07/28/19 00:00 97.6 84 18 169/92 (117) 95 07/27/19 21:00 Room Air 07/27/19 20:00 97.4 86 20 153/96 (115) 95 07/27/19 16:00 97.3 87 18 131/78 (95) 97 07/27/19 12:57 99.2 07/27/19 12:00 99.2 76 18 144/86 (105) 95 07/27/19 09:00 Room Air 07/27/19 08:00 98.4 89 19 147/83 (104) 97 Intake and Output 07/27/19 07/28/19 19:00 07:00 Intake Total 100 ml Balance 100 ml IV Total 100 ml # Voids 2 # Bowel Movements 1 Laboratory Tests 07/28/19 06:00: White Blood Count 7.9, Red Blood Count 3.50L, Hemoglobin 10.4L, Hematocrit 30.0L , Mean Corpuscular Volume 86, Mean Corpuscular Hemoglobin 29.6, Mean Corpuscular Hemoglobin Concent 34.5, Red Cell Distribution Width 11.7, Platelet Count 167, Mean Platelet Volume 8.0, Neutrophils (%) (Auto) 72.4, Lymphocytes (% ) (Auto) 19.6L, Monocytes (%) (Auto) 4.5, Eosinophils (%) (Auto) 2.7, Basophils (%) (Auto) 0.8, Erythrocyte Sedimentation Rate [Pending], Reticulocyte Count [ Pending], Prothrombin Time [Pending], Prothromb Time International Ratio [ Pending], Activated Partial Thromboplast Time [Pending], Sodium Level [Pending] , Potassium Level [Pending], Chloride Level [Pending], Carbon Dioxide Level [ Pending], Blood Urea Nitrogen [Pending], Creatinine [Pending], Estimat Glomerular Filtration Rate [Pending], Glucose Level [Pending], Calcium Level [ Pending], Phosphorus Level [Pending], Magnesium Level [Pending], Total Bilirubin [Pending], Aspartate Amino Transf (AST/SGOT) [Pending], Alanine Aminotransferase (ALT/SGPT) [Pending], Alkaline Phosphatase [Pending], Lactate Dehydrogenase [Pending], C-Reactive Protein, Quantitative [Pending], Total Protein [Pending], Albumin [Pending], Globulin [Pending] Height (Feet): 5 Height (Inches): 3.00 Weight (Pounds): 207 General Appearance: alert EENT: normal ENT inspection Neck: supple Cardiovascular: normal rate Respiratory/Chest: normal breath sounds Abdomen: soft, decreased bowel sounds, tender Extremities: non-tender Eliot Schaefer MD Jul 28, 2019 07:42
[2019-07-28 07:44] LABS: ALANINE AMINOTRANSFERASE 58 U/L (12-78); ALBUMIN 3.3 G/DL (3.4-5.0); ALBUMIN/GLOBULIN RATIO 1.1 (1.0-2.7); ALKALINE PHOSPHATASE 66 U/L (46-116); ANION GAP 6 mmol/L (5-15); ASPARTATE AMINO TRANSFERASE 38 U/L (15-37); BILIRUBIN,TOTAL 0.5 MG/DL (0.2-1.0); BLOOD UREA NITROGEN 4 mg/dL (7-18); CALCIUM 8.4 MG/DL (8.5-10.1); CARBON DIOXIDE 28 MMOL/L (21-32); CHLORIDE 111 MMOL/L (98-107); CREATININE 0.7 MG/DL (0.55-1.30); LACTATE DEHYDROGENASE 132 U/L (81-234); PHOSPHORUS 2.7 MG/DL (2.5-4.9); SODIUM 145 MMOL/L (136-145)
[2019-07-28 08:00] VITALS: BP 149/81
[2019-07-28] MEDS: OLANZapine 10mg tab ORAL SCH (08:31)
[2019-07-28] MEDS: Sertraline 100mg tab ORAL SCH (08:31)
--- NOTE | 2019-07-28 09:27 | Pulmonology Progress Note ---
Assessment/Plan Assessment/Plan ASSESSMENT acute sigmoid diverticulitis rectal bleeding, likely due to diverticular bleeding hemorrhoids anemia abd pain, likely due to acute diverticulitis leukocytosis presumed ROBERT morbid obesity bipolar disorder PLAN OF CARE [facility] floor initially NPO, IVF, bowel rest empiric abx bowel regimen pain management surgeon on board monitor HH with goal to keep Hgb above 7 symptomatic treatment GI follows colonoscopy on hold due to active diverticulitis, started on CL diet as toelrated O2 HHN prn sleep study as outpatient recommended case discussed and evaluated by supervising physician Subjective Allergies: Coded Allergies: CODEINE (Verified Allergy, Unknown, 07/26/19) NAPROXEN (Verified Allergy, Unknown, 07/26/19) Subjective leukocytosis resolved, afebrile, started on CL diet as per GI Objective Last 24 Hour Vital Signs Date Time Temp Pulse Resp B/P (MAP) Pulse Ox O2 Delivery O2 Flow Rate FiO2 07/28/19 08:00 97.9 84 19 149/81 (103) 94 07/28/19 04:00 98.0 84 18 127/89 (102) 96 07/28/19 01:10 169/92 07/28/19 00:00 97.6 84 18 169/92 (117) 95 07/27/19 21:00 Room Air 07/27/19 20:00 97.4 86 20 153/96 (115) 95 07/27/19 16:00 97.3 87 18 131/78 (95) 97 07/27/19 12:57 99.2 07/27/19 12:00 99.2 76 18 144/86 (105) 95 Intake and Output 07/27/19 07/28/19 18:59 06:59 Intake Total 100 ml Balance 100 ml IV Total 100 ml # Voids 2 # Bowel Movements 1 General Appearance: no acute distress, other - A/A/O x 4 female HEENT: normocephalic, atraumatic, anicteric, mucous membranes moist Respiratory/Chest: lungs clear, no respiratory distress, no accessory muscle use Cardiovascular: normal peripheral pulses, normal rate Abdomen: soft, non tender - obese, mild distention , hypoactive BS , other - mild TTP diffused, no rebound, no guarding Extremities: no edema Neurologic/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: 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, no motor/sensory deficits, alert, oriented x 3, responsive Musculoskeletal: normal muscle bulk Laboratory Tests 07/28/19 06:00: White Blood Count 7.9, Red Blood Count 3.50L, Hemoglobin 10.4L, Hematocrit 30.0L , Mean Corpuscular Volume 86, Mean Corpuscular Hemoglobin 29.6, Mean Corpuscular Hemoglobin Concent 34.5, Red Cell Distribution Width 11.7, Platelet Count 167, Mean Platelet Volume 8.0, Neutrophils (%) (Auto) 72.4, Lymphocytes (% ) (Auto) 19.6L, Monocytes (%) (Auto) 4.5, Eosinophils (%) (Auto) 2.7, Basophils (%) (Auto) 0.8, Erythrocyte Sedimentation Rate 22, Reticulocyte Count [Pending] , Prothrombin Time 10.0, Prothromb Time International Ratio 0.9, Activated Partial Thromboplast Time 25, Sodium Level 145, Potassium Level 4.0, Chloride Level 111H, Carbon Dioxide Level 28, Anion Gap 6, Blood Urea Nitrogen 4L, Creatinine 0.7, Estimat Glomerular Filtration Rate > 60, Glucose Level 109H, Calcium Level 8.4L, Phosphorus Level 2.7, Magnesium Level 1.9, Total Bilirubin 0.5, Aspartate Amino Transf (AST/SGOT) 38H, Alanine Aminotransferase (ALT/SGPT) 58, Alkaline Phosphatase 66, Lactate Dehydrogenase 132, C-Reactive Protein, Quantitative 0.6, Total Protein 6.2L, Albumin 3.3L, Globulin 2.9, Albumin/ Globulin Ratio 1.1 Current Medications Medications (Trade) Dose Ordered Sig/Oz Route PRN Reason Start Time Stop Time Status Last Admin Dose Admin Acetaminophen (Tylenol) 650 mg Q6H PRN ORAL Mild Pain/Temp > 100.5 07/27/19 01:30 08/26/19 01:29 07/28/19 08:32 Ceftriaxone Sodium 1 gm/ Dextrose 55 ml @ 110 mls/hr Q24H IVPB 07/27/19 02:00 08/03/19 01:59 07/28/19 01:11 Clonidine HCl (Catapres Tab) 0.1 mg Q4H PRN ORAL >160 SYSTOLE 07/27/19 07:30 08/26/19 07:29 07/28/19 01:10 Iopamidol (Isovue-300 100ml) 100 ml NOW PRN INJ Radiology Procedure 07/26/19 20:45 07/28/19 20:44 Metronidazole (Flagyl) 500 mg Q8HR ORAL 07/27/19 22:00 08/03/19 21:59 07/28/19 05:58 Olanzapine (ZyPREXA) 10 mg DAILY ORAL 07/27/19 09:00 08/26/19 08:59 07/28/19 08:31 Ondansetron HCl (Zofran) 4 mg Q4H PRN IVP Nausea & Vomiting 07/27/19 01:30 08/26/19 01:29 07/28/19 01:10 Patient Own Medication (Patient's Own Med) 4 ea BEDTIME ORAL 07/27/19 21:00 08/26/19 20:59 07/27/19 21:17 Sertraline HCl (Zoloft) 100 mg DAILY ORAL 07/27/19 09:00 08/26/19 08:59 07/28/19 08:31 Sodium Chloride 1,000 ml @ 100 mls/hr Q10H IV 07/27/19 18:30 08/26/19 18:29 07/28/19 05:59 Maryam Ortega NP Jul 28, 2019 09:27
[2019-07-28 12:00] VITALS: BP 137/80
--- NOTE | 2019-07-28 12:59 | Infectious Diseases Prog Note ---
Assessment/Plan Assessment/Plan Assessment: Hematochezia Probable early acute diverticulitis -CT abd/p: Somewhat unusual appearing isolated sigmoid diverticula with slight stranding of the peridiverticular fat, suspicious for early acute diverticulitis. Enlarged fatty liver. Borderline splenomegaly. Incidental finding of small exophytic uterine fibroid Afebrile Mild Leukocytosis, SP -u/a neg -CXR: no acute disease Bipolar disorder Plan: -Continue Ceftriaxone #2 and Flagyl #2/7 for diverticulitis -07/26 SP Cipro x1 -f/u cx -Monitor CBC/CMP, temperatures -GI f/u Thank you for this consultation. Will continue to follow along with you. Discussed with RN Subjective Allergies: Coded Allergies: CODEINE (Verified Allergy, Unknown, 07/26/19) NAPROXEN (Verified Allergy, Unknown, 07/26/19) Subjective afebrile leukocytosis resolved Objective Vital Signs Last 24 Hour Vital Signs Date Time Temp Pulse Resp B/P (MAP) Pulse Ox O2 Delivery O2 Flow Rate FiO2 07/28/19 12:00 98.6 82 18 137/80 (99) 95 07/28/19 09:02 97.9 07/28/19 09:00 Room Air 07/28/19 08:00 97.9 84 19 149/81 (103) 94 07/28/19 04:00 98.0 84 18 127/89 (102) 96 07/28/19 01:10 169/92 07/28/19 00:00 97.6 84 18 169/92 (117) 95 07/27/19 21:00 Room Air 07/27/19 20:00 97.4 86 20 153/96 (115) 95 07/27/19 16:00 97.3 87 18 131/78 (95) 97 Height (Feet): 5 Height (Inches): 3.00 Weight (Pounds): 207 Objective General Appearance: no apparent distress, alert, non-toxic Head: normocephalic, atraumatic Eyes: bilateral eye normal inspection, bilateral eye PERRL ENT: hearing grossly normal, normal pharynx, no angioedema, normal voice Neck: full range of motion, supple/symm/no masses Respiratory: chest non-tender, lungs clear, normal breath sounds, no respiratory distress, no retraction, no accessory muscle use, speaking full sentences Cardiovascular: regular rate, rhythm, no edema Gastrointestinal: normal bowel sounds, non tender, soft, non-distended, no guarding, no rebound Rectal: deferred Musculoskeletal: back normal, gait/station normal, normal range of motion, non- tender Skin: no rash, rash Laboratory Tests Test 07/28/19 06:00 White Blood Count 7.9 K/UL (4.8-10.8) Red Blood Count 3.50 M/UL (4.20-5.40) L Hemoglobin 10.4 G/DL (12.0-16.0) L Hematocrit 30.0 % (37.0-47.0) L Mean Corpuscular Volume 86 FL (80-99) Mean Corpuscular Hemoglobin 29.6 PG (27.0-31.0) Mean Corpuscular Hemoglobin Concent 34.5 G/DL (32.0-36.0) Red Cell Distribution Width 11.7 % (11.6-14.8) Platelet Count 167 K/UL (150-450) Mean Platelet Volume 8.0 FL (6.5-10.1) Neutrophils (%) (Auto) 72.4 % (45.0-75.0) Lymphocytes (%) (Auto) 19.6 % (20.0-45.0) L Monocytes (%) (Auto) 4.5 % (1.0-10.0) Eosinophils (%) (Auto) 2.7 % (0.0-3.0) Basophils (%) (Auto) 0.8 % (0.0-2.0) Erythrocyte Sedimentation Rate 22 MM/HR (0-30) Reticulocyte Count 2.4 % (0.5-2.0) H Prothrombin Time 10.0 SEC (9.30-11.50) Prothromb Time International Ratio 0.9 (0.9-1.1) Activated Partial Thromboplast Time 25 SEC (23-33) Sodium Level 145 MMOL/L (136-145) Potassium Level 4.0 MMOL/L (3.5-5.1) Chloride Level 111 MMOL/L (98-107) H Carbon Dioxide Level 28 MMOL/L (21-32) Anion Gap 6 mmol/L (5-15) Blood Urea Nitrogen 4 mg/dL (7-18) L Creatinine 0.7 MG/DL (0.55-1.30) Estimat Glomerular Filtration Rate > 60 mL/min (>60) Glucose Level 109 MG/DL (74-106) H Calcium Level 8.4 MG/DL (8.5-10.1) L Phosphorus Level 2.7 MG/DL (2.5-4.9) Magnesium Level 1.9 MG/DL (1.8-2.4) Total Bilirubin 0.5 MG/DL (0.2-1.0) Aspartate Amino Transf (AST/SGOT) 38 U/L (15-37) H Alanine Aminotransferase (ALT/SGPT) 58 U/L (12-78) Alkaline Phosphatase 66 U/L (46-116) Lactate Dehydrogenase 132 U/L (81-234) C-Reactive Protein, Quantitative 0.6 mg/dL (0.00-0.90) Total Protein 6.2 G/DL (6.4-8.2) L Albumin 3.3 G/DL (3.4-5.0) L Globulin 2.9 g/dL Albumin/Globulin Ratio 1.1 (1.0-2.7) Current Medications Medications (Trade) Dose Ordered Sig/Oz Route PRN Reason Start Time Stop Time Status Last Admin Dose Admin Acetaminophen (Tylenol) 650 mg Q6H PRN ORAL Mild Pain/Temp > 100.5 07/27/19 01:30 08/26/19 01:29 07/28/19 08:32 Ceftriaxone Sodium 1 gm/ Dextrose 55 ml @ 110 mls/hr Q24H IVPB 07/27/19 02:00 08/03/19 01:59 07/28/19 01:11 Clonidine HCl (Catapres Tab) 0.1 mg Q4H PRN ORAL >160 SYSTOLE 07/27/19 07:30 08/26/19 07:29 07/28/19 01:10 Iopamidol (Isovue-300 100ml) 100 ml NOW PRN INJ Radiology Procedure 07/26/19 20:45 07/28/19 20:44 Metronidazole (Flagyl) 500 mg Q8HR ORAL 07/27/19 22:00 08/03/19 21:59 07/28/19 05:58 Olanzapine (ZyPREXA) 10 mg DAILY ORAL 07/27/19 09:00 08/26/19 08:59 07/28/19 08:31 Ondansetron HCl (Zofran) 4 mg Q4H PRN IVP Nausea & Vomiting 07/27/19 01:30 08/26/19 01:29 07/28/19 01:10 Patient Own Medication (Patient's Own Med) 4 ea BEDTIME ORAL 07/27/19 21:00 08/26/19 20:59 07/27/19 21:17 Sertraline HCl (Zoloft) 100 mg DAILY ORAL 07/27/19 09:00 08/26/19 08:59 07/28/19 08:31 Sodium Chloride 1,000 ml @ 100 mls/hr Q10H IV 07/27/19 18:30 08/26/19 18:29 07/28/19 05:59 Tamy Meyers M.D. Jul 28, 2019 12:59
--- NOTE | 2019-07-28 13:10 | Cardiology Report ---
APPROVED REPORT EKG Measurement Heart [id number] Normal sinus rhythm Possible Left atrial enlargement Borderline ECG
--- NOTE | 2019-07-28 14:36 | Surgery Progress Note ---
Surgery Progress Note Subjective Additional Comments No acute events. States she is tolerating clears well. Feels little bloated No nausea vomiting fever chills. Labs improved. Objective Last 24 Hour Vital Signs Date Time Temp Pulse Resp B/P (MAP) Pulse Ox O2 Delivery O2 Flow Rate FiO2 07/28/19 12:00 98.6 82 18 137/80 (99) 95 07/28/19 09:02 97.9 07/28/19 09:00 Room Air 07/28/19 08:00 97.9 84 19 149/81 (103) 94 07/28/19 04:00 98.0 84 18 127/89 (102) 96 07/28/19 01:10 169/92 07/28/19 00:00 97.6 84 18 169/92 (117) 95 07/27/19 21:00 Room Air 07/27/19 20:00 97.4 86 20 153/96 (115) 95 07/27/19 16:00 97.3 87 18 131/78 (95) 97 I&O Intake and Output 07/27/19 07/28/19 18:59 06:59 Intake Total 100 ml Balance 100 ml IV Total 100 ml # Voids 2 # Bowel Movements 1 Cardiovascular: RSR Respiratory: clear Abdomen: soft, distended, tenderness - discomfort, present bowel sounds Extremities: no edema, no tenderness, no cyanosis Laboratory Tests Test 07/28/19 06:00 White Blood Count 7.9 K/UL (4.8-10.8) Red Blood Count 3.50 M/UL (4.20-5.40) L Hemoglobin 10.4 G/DL (12.0-16.0) L Hematocrit 30.0 % (37.0-47.0) L Mean Corpuscular Volume 86 FL (80-99) Mean Corpuscular Hemoglobin 29.6 PG (27.0-31.0) Mean Corpuscular Hemoglobin Concent 34.5 G/DL (32.0-36.0) Red Cell Distribution Width 11.7 % (11.6-14.8) Platelet Count 167 K/UL (150-450) Mean Platelet Volume 8.0 FL (6.5-10.1) Neutrophils (%) (Auto) 72.4 % (45.0-75.0) Lymphocytes (%) (Auto) 19.6 % (20.0-45.0) L Monocytes (%) (Auto) 4.5 % (1.0-10.0) Eosinophils (%) (Auto) 2.7 % (0.0-3.0) Basophils (%) (Auto) 0.8 % (0.0-2.0) Erythrocyte Sedimentation Rate 22 MM/HR (0-30) Reticulocyte Count 2.4 % (0.5-2.0) H Prothrombin Time 10.0 SEC (9.30-11.50) Prothromb Time International Ratio 0.9 (0.9-1.1) Activated Partial Thromboplast Time 25 SEC (23-33) Sodium Level 145 MMOL/L (136-145) Potassium Level 4.0 MMOL/L (3.5-5.1) Chloride Level 111 MMOL/L (98-107) H Carbon Dioxide Level 28 MMOL/L (21-32) Anion Gap 6 mmol/L (5-15) Blood Urea Nitrogen 4 mg/dL (7-18) L Creatinine 0.7 MG/DL (0.55-1.30) Estimat Glomerular Filtration Rate > 60 mL/min (>60) Glucose Level 109 MG/DL (74-106) H Calcium Level 8.4 MG/DL (8.5-10.1) L Phosphorus Level 2.7 MG/DL (2.5-4.9) Magnesium Level 1.9 MG/DL (1.8-2.4) Total Bilirubin 0.5 MG/DL (0.2-1.0) Aspartate Amino Transf (AST/SGOT) 38 U/L (15-37) H Alanine Aminotransferase (ALT/SGPT) 58 U/L (12-78) Alkaline Phosphatase 66 U/L (46-116) Lactate Dehydrogenase 132 U/L (81-234) C-Reactive Protein, Quantitative 0.6 mg/dL (0.00-0.90) Total Protein 6.2 G/DL (6.4-8.2) L Albumin 3.3 G/DL (3.4-5.0) L Globulin 2.9 g/dL Albumin/Globulin Ratio 1.1 (1.0-2.7) Plan Problems: (1) Bright red blood per rectum Assessment & Plan: This is a 49-year-old female with bright red blood per rectum and abdominal pain and leukocytosis as well as CT with acute sigmoid diverticulitis. Patient seen and evaluated. Chart reviewed. Labs reviewed. On examination patient with abdominal tenderness mainly in the left side and lower abdomen. CT scan reviewed and noted. No acute surgical intervention planned at this time. Will follow with serial abdominal examinations. Recommend bowel rest, n.p.o., IV fluids, IV antibiotics Patient having episode of acute diverticulitis and bright red bleeding. History of hemorrhoids and noted hemorrhoids on examination. Potentially bleeding hemorrhoids as well as diverticular event versus diverticulosis and diverticulitis will follow with recommendations thank you for this consultation (2) Diverticulitis Assessment & Plan: Findings: At the level of the mid sigmoid, there is what may be an unusual appearing diverticulum, with associated slight stranding of the perisigmoid fat. No other diverticula demonstrated. The appendix is not definitely visualized, but no findings to suggest acute appendicitis are evident. No small bowel distention. No free or loculated intraperitoneal gas or fluid is evident. The distal esophagus, stomach , duodenum are unremarkable. The liver is markedly enlarged. There is diffuse low-attenuation, consistent with fatty change. No focal abnormality. There is some sparing in segment 5 laterally. The gallbladder, bile ducts, pancreas are unremarkable. The spleen is enlarged, measuring 14.3 cm long axis dimension. The adrenals and kidneys are unremarkable. There are numerous but nonenlarged retroperitoneal nodes demonstrated. No pelvic mass or adenopathy. There is a small exophytic fibroid coming off of the uterus. The bladder is unremarkable. The included lung bases are clear. The bones are unremarkable. Impression: Somewhat unusual appearing isolated sigmoid diverticula with slight stranding of the peridiverticular fat, suspicious for early acute diverticulitis Enlarged fatty liver Borderline splenomegaly Incidental finding of small exophytic uterine fibroid (3) Lower GI bleed Jamie Lipscomb Jul 28, 2019 14:36
--- NOTE | 2019-07-28 15:12 | Internal Med Progress Note ---
Subjective Date of Service: Jul 28, 2019 Physician Name Scot Raymundo Attending Physician Ralf Lancaster MD Current Medications Medications (Trade) Dose Ordered Sig/Oz Route PRN Reason Start Time Stop Time Status Last Admin Dose Admin Acetaminophen (Tylenol) 650 mg Q6H PRN ORAL Mild Pain/Temp > 100.5 07/27/19 01:30 08/26/19 01:29 07/28/19 08:32 Ceftriaxone Sodium 1 gm/ Dextrose 55 ml @ 110 mls/hr Q24H IVPB 07/27/19 02:00 08/03/19 01:59 07/28/19 01:11 Clonidine HCl (Catapres Tab) 0.1 mg Q4H PRN ORAL >160 SYSTOLE 07/27/19 07:30 08/26/19 07:29 07/28/19 01:10 Iopamidol (Isovue-300 100ml) 100 ml NOW PRN INJ Radiology Procedure 07/26/19 20:45 07/28/19 20:44 Metronidazole (Flagyl) 500 mg Q8HR ORAL 07/27/19 22:00 08/03/19 21:59 07/28/19 13:18 Olanzapine (ZyPREXA) 10 mg DAILY ORAL 07/27/19 09:00 08/26/19 08:59 07/28/19 08:31 Ondansetron HCl (Zofran) 4 mg Q4H PRN IVP Nausea & Vomiting 07/27/19 01:30 08/26/19 01:29 07/28/19 01:10 Patient Own Medication (Patient's Own Med) 4 ea BEDTIME ORAL 07/27/19 21:00 08/26/19 20:59 07/27/19 21:17 Sertraline HCl (Zoloft) 100 mg DAILY ORAL 07/27/19 09:00 08/26/19 08:59 07/28/19 08:31 Sodium Chloride 1,000 ml @ 100 mls/hr Q10H IV 07/27/19 18:30 08/26/19 18:29 07/28/19 14:47 Allergies: Coded Allergies: CODEINE (Verified Allergy, Unknown, 07/26/19) NAPROXEN (Verified Allergy, Unknown, 07/26/19) ROS Limited/Unobtainable: No Constitutional: Reports: no symptoms HEENT: Reports: no symptoms Cardiovascular: Reports: no symptoms Respiratory: Reports: no symptoms Gastrointestinal/Abdominal: Reports: abdominal pain Genitourinary: Reports: no symptoms Neurologic/Psychiatric: Reports: no symptoms Subjective 49 YO F admitted with abdominal pain, syncope and GI bleed. Cover for Gretel Lancaster Objective Last Vital Signs Date Time Temp Pulse Resp B/P (MAP) Pulse Ox O2 Delivery O2 Flow Rate FiO2 07/28/19 12:00 98.6 82 18 137/80 (99) 95 07/28/19 09:00 Room Air Laboratory Tests Test 07/28/19 06:00 White Blood Count 7.9 K/UL (4.8-10.8) Red Blood Count 3.50 M/UL (4.20-5.40) L Hemoglobin 10.4 G/DL (12.0-16.0) L Hematocrit 30.0 % (37.0-47.0) L Mean Corpuscular Volume 86 FL (80-99) Mean Corpuscular Hemoglobin 29.6 PG (27.0-31.0) Mean Corpuscular Hemoglobin Concent 34.5 G/DL (32.0-36.0) Red Cell Distribution Width 11.7 % (11.6-14.8) Platelet Count 167 K/UL (150-450) Mean Platelet Volume 8.0 FL (6.5-10.1) Neutrophils (%) (Auto) 72.4 % (45.0-75.0) Lymphocytes (%) (Auto) 19.6 % (20.0-45.0) L Monocytes (%) (Auto) 4.5 % (1.0-10.0) Eosinophils (%) (Auto) 2.7 % (0.0-3.0) Basophils (%) (Auto) 0.8 % (0.0-2.0) Erythrocyte Sedimentation Rate 22 MM/HR (0-30) Reticulocyte Count 2.4 % (0.5-2.0) H Prothrombin Time 10.0 SEC (9.30-11.50) Prothromb Time International Ratio 0.9 (0.9-1.1) Activated Partial Thromboplast Time 25 SEC (23-33) Sodium Level 145 MMOL/L (136-145) Potassium Level 4.0 MMOL/L (3.5-5.1) Chloride Level 111 MMOL/L (98-107) H Carbon Dioxide Level 28 MMOL/L (21-32) Anion Gap 6 mmol/L (5-15) Blood Urea Nitrogen 4 mg/dL (7-18) L Creatinine 0.7 MG/DL (0.55-1.30) Estimat Glomerular Filtration Rate > 60 mL/min (>60) Glucose Level 109 MG/DL (74-106) H Calcium Level 8.4 MG/DL (8.5-10.1) L Phosphorus Level 2.7 MG/DL (2.5-4.9) Magnesium Level 1.9 MG/DL (1.8-2.4) Total Bilirubin 0.5 MG/DL (0.2-1.0) Aspartate Amino Transf (AST/SGOT) 38 U/L (15-37) H Alanine Aminotransferase (ALT/SGPT) 58 U/L (12-78) Alkaline Phosphatase 66 U/L (46-116) Lactate Dehydrogenase 132 U/L (81-234) C-Reactive Protein, Quantitative 0.6 mg/dL (0.00-0.90) Total Protein 6.2 G/DL (6.4-8.2) L Albumin 3.3 G/DL (3.4-5.0) L Globulin 2.9 g/dL Albumin/Globulin Ratio 1.1 (1.0-2.7) Intake and Output 07/27/19 07/28/19 18:59 06:59 Intake Total 100 ml Balance 100 ml IV Total 100 ml # Voids 2 # Bowel Movements 1 Objective PHYSICAL EXAMINATION: GENERAL: The patient is awake, responsive, and in no acute distress. HEAD AND NECK: Pupils are reactive to light. Extraocular movements intact. Neck was supple. No JVD. LUNGS: Good air entry. No wheezing or rales. Decreased air in the bases. HEART: Reveals S1 and S2. Regular rhythm. No gallops. ABDOMEN: Soft. Morbidly obese. No rebound tenderness. Bilateral lower quadrant tenderness on deep palpation. EXTREMITIES: No cyanosis, clubbing, or edema NEUROLOGIC: Cranial nerves II through XII grossly intact. Motor is 5/5 in all extremities. Gait is intact. RECTAL/GENITOURINARY: Refused and deferred. PSYCHIATRIC: Mood and affect is bipolar type 1. Assessment/Plan Assessment/Plan ASSESSMENT: 1. Lower abdominal pain 2. Lower gastrointestinal hemorrhage 3. Diverticulitis 4. Leukocytosis, most likely secondary to diverticulitis and diverticular bleed. 5. Morbid obesity. 6. Bipolar disorder type 1. 7. Presumed obstructive sleep apnea with snoring. PLAN: 1. Admit the patient to medical floor. 2. We will follow up with Dr. George from Pulmonary Critical Care 3. Surgery= Dr. Lipscomb 4. GI consultation=Dr Schaefer. 5. antibiotics = Flagyl and Rocephin per ID=Dr Meyers 6. clear liquid diet, 7. DVT prophylaxis with SCD. Contraindication for heparin due to the acute bleeding. 8. Colonoscopy on hold per Scot Burgos MD Jul 28, 2019 15:12
[2019-07-28 16:00] VITALS: BP 119/83
--- NOTE | 2019-07-28 17:34 | NUR ---
CASE MANAGEMENT: REVIEW 07/28/2019 SI:HEMORRHAGE OF ANUS AND RECTUM T 98.6 HR 74 RR 17 B/P 119/83 SATS 98% ON RA CL 111 BUN 4 GLU 109 CA 8.4 AST 38 IS:IVF @ 100 mL/HR ZYPREXA PO QD CEFTRIAXONE IV Q24H FLAGYL PO Q8H MED/SURG STATUS
--- NOTE | 2019-07-28 17:39 | NUR ---
INSURANCE PROGRESS NOTES AND REVIEWS FAXED TO [phone].
--- NOTE | 2019-07-28 19:27 | NUR ---
HAND-OFF: Report given to FAUSTO WEST.
[2019-07-28 20:00] VITALS: BP 143/91
--- NOTE | 2019-07-28 20:07 | NUR ---
NURSE NOTES: Received report from BRETT Thomason. Patient is in bed asleep. On room air with no sign of distress or SOB. IV intact and running fluids well. No c/o pain at this time. Bed locked and in lowest position. Will continue to monitor the patient.
[2019-07-28] MEDS: LITHIUM CARBONATE 300 MG ORAL SCH (21:13)
[2019-07-29] VITALS: BP 156/92
[2019-07-29] MEDS: cefTRIAXone 1 GM in D5W 55 ML IVPB SCH (02:15)
[2019-07-29 04:00] VITALS: BP 133/89
[2019-07-29] MEDS: metroNIDAZOLE 500mg tab ORAL SCH ×3 (05:13→22:06)
--- NOTE | 2019-07-29 06:50 | General Progress Note ---
Assessment/Plan Problem List: (1) Bipolar disorder ICD Codes: F31.9 - Bipolar disorder, unspecified SNOMED: 13287306 (2) Lower GI bleed ICD Codes: K92.2 - Gastrointestinal hemorrhage, unspecified SNOMED: 51618389 (3) Diverticulitis ICD Codes: K57.92 - Diverticulitis of intestine, part unspecified, without perforation or abscess without bleeding SNOMED: 522777737 Assessment/Plan: abx clears fu H&H colonoscopy on hold given active diverticulitis plan out patient colonoscopy in 6-8 weeks Subjective ROS Limited/Unobtainable: Yes Allergies: Coded Allergies: CODEINE (Verified Allergy, Unknown, 07/26/19) NAPROXEN (Verified Allergy, Unknown, 07/26/19) Objective Last 24 Hour Vital Signs Date Time Temp Pulse Resp B/P (MAP) Pulse Ox O2 Delivery O2 Flow Rate FiO2 07/29/19 04:00 98.7 78 20 133/89 (104) 95 07/29/19 00:00 98.6 81 18 156/92 (113) 95 07/28/19 21:00 Room Air 07/28/19 20:00 98.1 77 18 143/91 (108) 94 07/28/19 16:00 98.6 74 17 119/83 (95) 98 07/28/19 12:00 98.6 82 18 137/80 (99) 95 07/28/19 09:02 97.9 07/28/19 09:00 Room Air 07/28/19 08:00 97.9 84 19 149/81 (103) 94 Intake and Output 07/28/19 07/29/19 19:00 07:00 Intake Total 2100 ml 1000 ml Balance 2100 ml 1000 ml IV Total 1200 ml 1000 ml Other 900 ml # Voids 2 Height (Feet): 5 Height (Inches): 3.00 Weight (Pounds): 207 General Appearance: alert EENT: normal ENT inspection Neck: supple Cardiovascular: normal rate Respiratory/Chest: decreased breath sounds Abdomen: normal bowel sounds, non tender, soft Extremities: non-tender Eliot Schaefer MD Jul 29, 2019 06:50
--- NOTE | 2019-07-29 07:21 | NUR ---
HAND-OFF: Report given to KYE Sweet.
--- NOTE | 2019-07-29 07:45 | NUR ---
NURSE NOTES: Received pt A/A/Ox4, able to make things known. no SOB or acute respiratory distress noted. IV access LAC 18g is patent and intact. bed is locked and is in the lowest position. alarm activated for safety. call light within easy reach. will continue to monitor.
[2019-07-29 08:00] VITALS: BP 147/88
[2019-07-29 08:02] LABS: BASOPHILS % (AUTO) 0.8 % (0.0-2.0); EOSINOPHILS % (AUTO) 2.4 % (0.0-3.0); HEMATOCRIT 30.6 % (37.0-47.0); HEMOGLOBIN 10.2 G/DL (12.0-16.0); MEAN CORPUSCULAR VOLUME 88 FL (80-99); MONOCYTES % (AUTO) 4.9 % (1.0-10.0); NEUTROPHILS % (AUTO) 72.9 % (45.0-75.0); PLATELET COUNT 163 K/UL (150-450); RED BLOOD COUNT 3.49 M/UL (4.20-5.40); RED CELL DISTRIBUTION WIDTH 11.6 % (11.6-14.8); WHITE BLOOD COUNT 8.4 K/UL (4.8-10.8)
[2019-07-29 08:13] LABS: ALANINE AMINOTRANSFERASE 51 U/L (12-78); ALBUMIN 3.3 G/DL (3.4-5.0); ALBUMIN/GLOBULIN RATIO 1.1 (1.0-2.7); ALKALINE PHOSPHATASE 65 U/L (46-116); ANION GAP 8 mmol/L (5-15); ASPARTATE AMINO TRANSFERASE 35 U/L (15-37); BILIRUBIN,TOTAL 0.4 MG/DL (0.2-1.0); BLOOD UREA NITROGEN 3 mg/dL (7-18); CALCIUM 8.7 MG/DL (8.5-10.1); CARBON DIOXIDE 27 MMOL/L (21-32); CHLORIDE 113 MMOL/L (98-107); CREATININE 0.7 MG/DL (0.55-1.30); POTASSIUM 3.6 MMOL/L (3.5-5.1); SODIUM 148 MMOL/L (136-145)
[2019-07-29] MEDS: OLANZapine 10mg tab ORAL SCH (08:17)
[2019-07-29] MEDS: Sertraline 100mg tab ORAL SCH (08:19)
[2019-07-29 08:24] LABS: % IRON SATURATION 11 % (15-50); IRON 43 ug/dL (50-175); TOTAL IRON BINDING CAPACITY 376 ug/dL (250-450)
--- NOTE | 2019-07-29 10:16 | Pulmonology Progress Note ---
Assessment/Plan Assessment/Plan ASSESSMENT acute sigmoid diverticulitis rectal bleeding, likely due to diverticular bleeding hemorrhoids anemia abd pain, likely due to acute diverticulitis leukocytosis presumed ROBERT morbid obesity bipolar disorder PLAN OF CARE [facility] floor initially NPO, IVF, bowel rest empiric abx bowel regimen pain management surgeon on board monitor HH with goal to keep Hgb above 7 symptomatic treatment GI follows colonoscopy on hold due to active diverticulitis, advanced to FL diet, monitor tolerance O2 HHN prn sleep study as outpatient recommended case discussed and evaluated by supervising physician Subjective Allergies: Coded Allergies: CODEINE (Verified Allergy, Unknown, 07/26/19) NAPROXEN (Verified Allergy, Unknown, 07/26/19) Subjective leukocytosis resolved, afebrile, tolerated CL diet and advanced to FL diet Objective Last 24 Hour Vital Signs Date Time Temp Pulse Resp B/P (MAP) Pulse Ox O2 Delivery O2 Flow Rate FiO2 07/29/19 08:48 98.6 07/29/19 08:00 Room Air 07/29/19 08:00 98.6 87 17 147/88 (107) 93 07/29/19 04:00 98.7 78 20 133/89 (104) 95 07/29/19 00:00 98.6 81 18 156/92 (113) 95 07/28/19 21:00 Room Air 07/28/19 20:00 98.1 77 18 143/91 (108) 94 07/28/19 16:00 98.6 74 17 119/83 (95) 98 07/28/19 12:00 98.6 82 18 137/80 (99) 95 Intake and Output 07/28/19 07/29/19 19:00 07:00 Intake Total 2100 ml 1100 ml Balance 2100 ml 1100 ml IV Total 1200 ml 1100 ml Other 900 ml # Voids 2 Objective General Appearance: no acute distress, A/A/O x 4 female HEENT: normocephalic, atraumatic, anicteric, mucous membranes moist Respiratory/Chest: lungs clear, no respiratory distress, no accessory muscle use Cardiovascular: normal peripheral pulses, normal rate Abdomen: soft, non tender - obese, mild distention , normoactive BS , mild TTP - diffused, no rebound, no guarding Extremities: no edema 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, no motor/sensory deficits, alert, oriented x 3, responsive Musculoskeletal: normal muscle bulk Laboratory Tests 07/29/19 07:00: White Blood Count 8.4, Red Blood Count 3.49L, Hemoglobin 10.2L, Hematocrit 30.6L , Mean Corpuscular Volume 88, Mean Corpuscular Hemoglobin 29.3, Mean Corpuscular Hemoglobin Concent 33.4, Red Cell Distribution Width 11.6, Platelet Count 163, Mean Platelet Volume 7.6, Neutrophils (%) (Auto) 72.9, Lymphocytes (% ) (Auto) 19.0L, Monocytes (%) (Auto) 4.9, Eosinophils (%) (Auto) 2.4, Basophils (%) (Auto) 0.8, Erythrocyte Sedimentation Rate 26, Sodium Level 148H, Potassium Level 3.6, Chloride Level 113H, Carbon Dioxide Level 27, Anion Gap 8, Blood Urea Nitrogen 3L, Creatinine 0.7, Estimat Glomerular Filtration Rate > 60, Glucose Level 108H, Lactic Acid Level 0.80, Calcium Level 8.7, Iron Level 43L, Total Iron Binding Capacity 376, Percent Iron Saturation 11L, Unsaturated Iron Binding 333, Total Bilirubin 0.4, Aspartate Amino Transf (AST/SGOT) 35, Alanine Aminotransferase (ALT/SGPT) 51, Alkaline Phosphatase 65, C-Reactive Protein, Quantitative 0.9, Total Protein 6.3L, Albumin 3.3L, Globulin 3.0, Albumin/ Globulin Ratio 1.1, Carcinoembryonic Antigen [Pending] Current Medications Medications (Trade) Dose Ordered Sig/Oz Route PRN Reason Start Time Stop Time Status Last Admin Dose Admin Acetaminophen (Tylenol) 650 mg Q6H PRN ORAL Mild Pain/Temp > 100.5 07/27/19 01:30 08/26/19 01:29 07/29/19 08:18 Ceftriaxone Sodium 1 gm/ Dextrose 55 ml @ 110 mls/hr Q24H IVPB 07/27/19 02:00 08/03/19 01:59 07/29/19 02:15 Clonidine HCl (Catapres Tab) 0.1 mg Q4H PRN ORAL >160 SYSTOLE 07/27/19 07:30 08/26/19 07:29 07/28/19 01:10 Metronidazole (Flagyl) 500 mg Q8HR ORAL 07/27/19 22:00 08/03/19 21:59 07/29/19 05:13 Olanzapine (ZyPREXA) 10 mg DAILY ORAL 07/27/19 09:00 08/26/19 08:59 07/29/19 08:17 Ondansetron HCl (Zofran) 4 mg Q4H PRN IVP Nausea & Vomiting 07/27/19 01:30 08/26/19 01:29 07/29/19 08:45 Patient Own Medication (Patient's Own Med) 4 ea BEDTIME ORAL 07/27/19 21:00 08/26/19 20:59 07/28/19 21:13 Sertraline HCl (Zoloft) 100 mg DAILY ORAL 07/27/19 09:00 08/26/19 08:59 07/29/19 08:19 Sodium Chloride 1,000 ml @ 100 mls/hr Q10H IV 07/27/19 18:30 08/26/19 18:29 07/29/19 08:19 Maryam Ortega NP Jul 29, 2019 10:16
--- NOTE | 2019-07-29 11:39 | NUR ---
NURSE NOTES: informed PMD re; c/o H/A. tylenol given and not effective. awaiting for a call back. patient drink sufficient amount of fluids and goes to the bathroom without any distress and discomfort. Abdomen is distended and firm. NO bm as of this time. will cont to monitor.
[2019-07-29 12:00] VITALS: BP 139/79
--- NOTE | 2019-07-29 12:30 | NUR ---
NURSE NOTES: per patient, relieved from headache and nausea after having lunch with full liquid diet. will cont to monitor.
--- NOTE | 2019-07-29 14:23 | Surgery Progress Note ---
Surgery Progress Note Subjective Symptoms: improved, tolerating diet, passing flatus, pain decreased Objective Last 24 Hour Vital Signs Date Time Temp Pulse Resp B/P (MAP) Pulse Ox O2 Delivery O2 Flow Rate FiO2 07/29/19 12:00 98.9 75 18 139/79 (99) 100 07/29/19 08:48 98.6 07/29/19 08:00 Room Air 07/29/19 08:00 98.6 87 17 147/88 (107) 93 07/29/19 04:00 98.7 78 20 133/89 (104) 95 07/29/19 00:00 98.6 81 18 156/92 (113) 95 07/28/19 21:00 Room Air 07/28/19 20:00 98.1 77 18 143/91 (108) 94 07/28/19 16:00 98.6 74 17 119/83 (95) 98 I&O Intake and Output 07/28/19 07/29/19 18:59 06:59 Intake Total 2000 ml 1100 ml Balance 2000 ml 1100 ml IV Total 1100 ml 1100 ml Other 900 ml # Voids 2 Cardiovascular: RSR Respiratory: clear Abdomen: soft, non-tender, present bowel sounds Extremities: no tenderness, no cyanosis Laboratory Tests Test 07/29/19 07:00 White Blood Count 8.4 K/UL (4.8-10.8) Red Blood Count 3.49 M/UL (4.20-5.40) L Hemoglobin 10.2 G/DL (12.0-16.0) L Hematocrit 30.6 % (37.0-47.0) L Mean Corpuscular Volume 88 FL (80-99) Mean Corpuscular Hemoglobin 29.3 PG (27.0-31.0) Mean Corpuscular Hemoglobin Concent 33.4 G/DL (32.0-36.0) Red Cell Distribution Width 11.6 % (11.6-14.8) Platelet Count 163 K/UL (150-450) Mean Platelet Volume 7.6 FL (6.5-10.1) Neutrophils (%) (Auto) 72.9 % (45.0-75.0) Lymphocytes (%) (Auto) 19.0 % (20.0-45.0) L Monocytes (%) (Auto) 4.9 % (1.0-10.0) Eosinophils (%) (Auto) 2.4 % (0.0-3.0) Basophils (%) (Auto) 0.8 % (0.0-2.0) Erythrocyte Sedimentation Rate 26 MM/HR (0-30) Sodium Level 148 MMOL/L (136-145) H Potassium Level 3.6 MMOL/L (3.5-5.1) Chloride Level 113 MMOL/L (98-107) H Carbon Dioxide Level 27 MMOL/L (21-32) Anion Gap 8 mmol/L (5-15) Blood Urea Nitrogen 3 mg/dL (7-18) L Creatinine 0.7 MG/DL (0.55-1.30) Estimat Glomerular Filtration Rate > 60 mL/min (>60) Glucose Level 108 MG/DL (74-106) H Lactic Acid Level 0.80 mmol/L (0.4-2.0) Calcium Level 8.7 MG/DL (8.5-10.1) Iron Level 43 ug/dL (50-175) L Total Iron Binding Capacity 376 ug/dL (250-450) Percent Iron Saturation 11 % (15-50) L Unsaturated Iron Binding 333 ug/dL (112-346) Total Bilirubin 0.4 MG/DL (0.2-1.0) Aspartate Amino Transf (AST/SGOT) 35 U/L (15-37) Alanine Aminotransferase (ALT/SGPT) 51 U/L (12-78) Alkaline Phosphatase 65 U/L (46-116) C-Reactive Protein, Quantitative 0.9 mg/dL (0.00-0.90) Total Protein 6.3 G/DL (6.4-8.2) L Albumin 3.3 G/DL (3.4-5.0) L Globulin 3.0 g/dL Albumin/Globulin Ratio 1.1 (1.0-2.7) Carcinoembryonic Antigen Pending Plan Problems: (1) Bright red blood per rectum Assessment & Plan: This is a 49-year-old female with bright red blood per rectum and abdominal pain and leukocytosis as well as CT with acute sigmoid diverticulitis. Patient seen and evaluated. Chart reviewed. Labs reviewed. On examination patient with abdominal tenderness mainly in the left side and lower abdomen. CT scan reviewed and noted. No acute surgical intervention planned at this time. Will follow with serial abdominal examinations. diet IV antibiotics Patient having episode of acute diverticulitis and bright red bleeding. History of hemorrhoids and noted hemorrhoids on examination. Potentially bleeding hemorrhoids as well as diverticular event versus diverticulosis and diverticulitis no longer bleeding improved will follow with recommendations thank you for this consultation (2) Diverticulitis Assessment & Plan: Findings: At the level of the mid sigmoid, there is what may be an unusual appearing diverticulum, with associated slight stranding of the perisigmoid fat. No other diverticula demonstrated. The appendix is not definitely visualized, but no findings to suggest acute appendicitis are evident. No small bowel distention. No free or loculated intraperitoneal gas or fluid is evident. The distal esophagus, stomach , duodenum are unremarkable. The liver is markedly enlarged. There is diffuse low-attenuation, consistent with fatty change. No focal abnormality. There is some sparing in segment 5 laterally. The gallbladder, bile ducts, pancreas are unremarkable. The spleen is enlarged, measuring 14.3 cm long axis dimension. The adrenals and kidneys are unremarkable. There are numerous but nonenlarged retroperitoneal nodes demonstrated. No pelvic mass or adenopathy. There is a small exophytic fibroid coming off of the uterus. The bladder is unremarkable. The included lung bases are clear. The bones are unremarkable. Impression: Somewhat unusual appearing isolated sigmoid diverticula with slight stranding of the peridiverticular fat, suspicious for early acute diverticulitis Enlarged fatty liver Borderline splenomegaly Incidental finding of small exophytic uterine fibroid (3) Lower GI bleed Jamie Lipscomb Jul 29, 2019 14:22
--- NOTE | 2019-07-29 15:02 | Internal Med Progress Note ---
Subjective Date of Service: Jul 29, 2019 Physician Name Scot Raymundo Attending Physician Ralf Lancaster MD Current Medications Medications (Trade) Dose Ordered Sig/Oz Route PRN Reason Start Time Stop Time Status Last Admin Dose Admin Acetaminophen (Tylenol) 650 mg Q6H PRN ORAL Mild Pain/Temp > 100.5 07/27/19 01:30 08/26/19 01:29 07/29/19 08:18 Ceftriaxone Sodium 1 gm/ Dextrose 55 ml @ 110 mls/hr Q24H IVPB 07/27/19 02:00 08/03/19 01:59 07/29/19 02:15 Clonidine HCl (Catapres Tab) 0.1 mg Q4H PRN ORAL >160 SYSTOLE 07/27/19 07:30 08/26/19 07:29 07/28/19 01:10 Metronidazole (Flagyl) 500 mg Q8HR ORAL 07/27/19 22:00 08/03/19 21:59 07/29/19 13:34 Olanzapine (ZyPREXA) 10 mg DAILY ORAL 07/27/19 09:00 08/26/19 08:59 07/29/19 08:17 Ondansetron HCl (Zofran) 4 mg Q4H PRN IVP Nausea & Vomiting 07/27/19 01:30 08/26/19 01:29 07/29/19 08:45 Patient Own Medication (Patient's Own Med) 4 ea BEDTIME ORAL 07/27/19 21:00 08/26/19 20:59 07/28/19 21:13 Sertraline HCl (Zoloft) 100 mg DAILY ORAL 07/27/19 09:00 08/26/19 08:59 07/29/19 08:19 Sodium Chloride 1,000 ml @ 100 mls/hr Q10H IV 07/27/19 18:30 08/26/19 18:29 07/29/19 08:19 Allergies: Coded Allergies: CODEINE (Verified Allergy, Unknown, 07/26/19) NAPROXEN (Verified Allergy, Unknown, 07/26/19) ROS Limited/Unobtainable: No Constitutional: Reports: no symptoms HEENT: Reports: no symptoms Cardiovascular: Reports: no symptoms Respiratory: Reports: no symptoms Gastrointestinal/Abdominal: Reports: rectal bleeding Genitourinary: Reports: no symptoms Neurologic/Psychiatric: Reports: no symptoms Subjective 49 YO F admitted with abdominal pain, syncope and GI bleed. Cover for Int Valente- DR Lancaster Objective Last Vital Signs Date Time Temp Pulse Resp B/P (MAP) Pulse Ox O2 Delivery O2 Flow Rate FiO2 07/29/19 12:00 98.9 75 18 139/79 (99) 100 07/29/19 08:00 Room Air Laboratory Tests Test 07/29/19 07:00 White Blood Count 8.4 K/UL (4.8-10.8) Red Blood Count 3.49 M/UL (4.20-5.40) L Hemoglobin 10.2 G/DL (12.0-16.0) L Hematocrit 30.6 % (37.0-47.0) L Mean Corpuscular Volume 88 FL (80-99) Mean Corpuscular Hemoglobin 29.3 PG (27.0-31.0) Mean Corpuscular Hemoglobin Concent 33.4 G/DL (32.0-36.0) Red Cell Distribution Width 11.6 % (11.6-14.8) Platelet Count 163 K/UL (150-450) Mean Platelet Volume 7.6 FL (6.5-10.1) Neutrophils (%) (Auto) 72.9 % (45.0-75.0) Lymphocytes (%) (Auto) 19.0 % (20.0-45.0) L Monocytes (%) (Auto) 4.9 % (1.0-10.0) Eosinophils (%) (Auto) 2.4 % (0.0-3.0) Basophils (%) (Auto) 0.8 % (0.0-2.0) Erythrocyte Sedimentation Rate 26 MM/HR (0-30) Sodium Level 148 MMOL/L (136-145) H Potassium Level 3.6 MMOL/L (3.5-5.1) Chloride Level 113 MMOL/L (98-107) H Carbon Dioxide Level 27 MMOL/L (21-32) Anion Gap 8 mmol/L (5-15) Blood Urea Nitrogen 3 mg/dL (7-18) L Creatinine 0.7 MG/DL (0.55-1.30) Estimat Glomerular Filtration Rate > 60 mL/min (>60) Glucose Level 108 MG/DL (74-106) H Lactic Acid Level 0.80 mmol/L (0.4-2.0) Calcium Level 8.7 MG/DL (8.5-10.1) Iron Level 43 ug/dL (50-175) L Total Iron Binding Capacity 376 ug/dL (250-450) Percent Iron Saturation 11 % (15-50) L Unsaturated Iron Binding 333 ug/dL (112-346) Total Bilirubin 0.4 MG/DL (0.2-1.0) Aspartate Amino Transf (AST/SGOT) 35 U/L (15-37) Alanine Aminotransferase (ALT/SGPT) 51 U/L (12-78) Alkaline Phosphatase 65 U/L (46-116) C-Reactive Protein, Quantitative 0.9 mg/dL (0.00-0.90) Total Protein 6.3 G/DL (6.4-8.2) L Albumin 3.3 G/DL (3.4-5.0) L Globulin 3.0 g/dL Albumin/Globulin Ratio 1.1 (1.0-2.7) Carcinoembryonic Antigen Pending Intake and Output 07/28/19 07/29/19 18:59 06:59 Intake Total 2000 ml 1100 ml Balance 2000 ml 1100 ml IV Total 1100 ml 1100 ml Other 900 ml # Voids 2 Objective PHYSICAL EXAMINATION: GENERAL: The patient is awake, responsive, and in no acute distress. HEAD AND NECK: Pupils are reactive to light. Extraocular movements intact. Neck was supple. No JVD. LUNGS: Good air entry. No wheezing or rales. Decreased air in the bases. HEART: Reveals S1 and S2. Regular rhythm. No gallops. ABDOMEN: Soft. Morbidly obese. No rebound tenderness. Bilateral lower quadrant tenderness on deep palpation. EXTREMITIES: No cyanosis, clubbing, or edema NEUROLOGIC: Cranial nerves II through XII grossly intact. Motor is 5/5 in all extremities. Gait is intact. RECTAL/GENITOURINARY: Refused and deferred. PSYCHIATRIC: Mood and affect is bipolar type 1. Assessment/Plan Assessment/Plan ASSESSMENT: 1. Lower abdominal pain 2. Lower gastrointestinal hemorrhage 3. Diverticulitis 4. Leukocytosis, most likely secondary to diverticulitis and diverticular bleed. 5. Morbid obesity. 6. Bipolar disorder type 1. 7. Presumed obstructive sleep apnea with snoring. PLAN: 1. Admit the patient to medical floor. 2. We will follow up with Dr. George from Pul[facility] 3. Surgery= Dr. Lipscomb 4. GI consultation=Dr Schaefer. 5. antibiotics = Flagyl and Rocephin per ID=Dr Meyers 6. clear liquid diet, 7. DVT prophylaxis with SCD. Contraindication for heparin due to the acute bleeding. 8. Colonoscopy on hold per Scot Burgos MD Jul 29, 2019 15:02
[2019-07-29 16:00] VITALS: BP 157/98
--- NOTE | 2019-07-29 18:58 | NUR ---
HAND-OFF: Report given to Bebe.
[2019-07-29 20:00] VITALS: BP 151/92
--- NOTE | 2019-07-29 20:10 | NUR ---
NURSE NOTES: Received report from KYE Sweet. Patient is in bed, awake and alert x4. On room air with no signs of distress or SOB. IV intact and running fluids. Bed locked and in lowest position. Call light in reach. Will continue to monitor.
[2019-07-29] MEDS: LITHIUM CARBONATE 300 MG ORAL SCH (22:06)
[2019-07-30] VITALS: BP 138/88
[2019-07-30] MEDS: cefTRIAXone 1 GM in D5W 55 ML IVPB SCH (02:42)
[2019-07-30 04:00] VITALS: BP 139/95
[2019-07-30] MEDS: metroNIDAZOLE 500mg tab ORAL SCH ×2 (06:22→13:44)
[2019-07-30 07:15] LABS: BASOPHILS % (AUTO) 0.7 % (0.0-2.0); HEMATOCRIT 32.4 % (37.0-47.0); HEMOGLOBIN 10.8 G/DL (12.0-16.0); LYMPHOCYTES % (AUTO) 21.5 % (20.0-45.0); MEAN CORPUSCULAR VOLUME 88 FL (80-99); MONOCYTES % (AUTO) 4.8 % (1.0-10.0); PLATELET COUNT 214 K/UL (150-450); RED CELL DISTRIBUTION WIDTH 12.1 % (11.6-14.8); WHITE BLOOD COUNT 11.1 K/UL (4.8-10.8)
--- NOTE | 2019-07-30 07:20 | NUR ---
HAND-OFF: Report given to BRETT Luna and Fartun Cagle RN.
[2019-07-30 07:29] LABS: BLOOD UREA NITROGEN 1 mg/dL (7-18); CALCIUM 9.1 MG/DL (8.5-10.1); CHLORIDE 110 MMOL/L (98-107); CREATININE 0.7 MG/DL (0.55-1.30); POTASSIUM 3.6 MMOL/L (3.5-5.1); SODIUM 145 MMOL/L (136-145)
[2019-07-30 07:57] LABS: CARBON DIOXIDE 27 MMOL/L (21-32)
[2019-07-30 08:00] VITALS: BP 153/94
--- NOTE | 2019-07-30 08:21 | NUR ---
NURSE NOTES: Received report from BRETT Segura. Pt is in bed, calm, awake, alert, oriented. No apparent distress noted. IV fluids running, bed in lowest position, side rails up, call light within reach.
[2019-07-30] MEDS: Sertraline 100mg tab ORAL SCH (09:42)
[2019-07-30] MEDS: OLANZapine 10mg tab ORAL SCH (09:42)
--- NOTE | 2019-07-30 10:47 | Surgery Progress Note ---
Surgery Progress Note Subjective Additional Comments pain resolved mild leukocytosis states she feels great no n/v/f/c tolerating diet passing flatus Objective Last 24 Hour Vital Signs Date Time Temp Pulse Resp B/P (MAP) Pulse Ox O2 Delivery O2 Flow Rate FiO2 07/30/19 08:54 Room Air 07/30/19 08:00 98.2 87 16 153/94 (113) 95 07/30/19 04:00 97.8 70 18 139/95 (110) 94 07/30/19 00:00 97.6 83 18 138/88 (105) 94 07/29/19 21:00 Room Air 07/29/19 20:00 98.0 76 18 151/92 (111) 96 07/29/19 16:00 97.1 74 19 157/98 (117) 94 07/29/19 12:00 98.9 75 18 139/79 (99) 100 I&O Intake and Output 07/29/19 07/30/19 19:00 07:00 Intake Total 1580 ml 500 ml Balance 1580 ml 500 ml Intake Oral 480 ml IV Total 1100 ml 500 ml # Voids 3 2 Cardiovascular: RSR Respiratory: clear Abdomen: soft, flat, non-tender, present bowel sounds, other, non-distended Extremities: no edema, no tenderness, no cyanosis Laboratory Tests Test 07/30/19 05:35 White Blood Count 11.1 K/UL (4.8-10.8) H Red Blood Count 3.70 M/UL (4.20-5.40) L Hemoglobin 10.8 G/DL (12.0-16.0) L Hematocrit 32.4 % (37.0-47.0) L Mean Corpuscular Volume 88 FL (80-99) Mean Corpuscular Hemoglobin 29.2 PG (27.0-31.0) Mean Corpuscular Hemoglobin Concent 33.4 G/DL (32.0-36.0) Red Cell Distribution Width 12.1 % (11.6-14.8) Platelet Count 214 K/UL (150-450) Mean Platelet Volume 7.1 FL (6.5-10.1) Neutrophils (%) (Auto) 71.0 % (45.0-75.0) Lymphocytes (%) (Auto) 21.5 % (20.0-45.0) Monocytes (%) (Auto) 4.8 % (1.0-10.0) Eosinophils (%) (Auto) 2.0 % (0.0-3.0) Basophils (%) (Auto) 0.7 % (0.0-2.0) Sodium Level 145 MMOL/L (136-145) Potassium Level 3.6 MMOL/L (3.5-5.1) Chloride Level 110 MMOL/L (98-107) H Carbon Dioxide Level 27 MMOL/L (21-32) Blood Urea Nitrogen 1 mg/dL (7-18) L Creatinine 0.7 MG/DL (0.55-1.30) Estimat Glomerular Filtration Rate > 60 mL/min (>60) Glucose Level 98 MG/DL (74-106) Calcium Level 9.1 MG/DL (8.5-10.1) Plan Problems: (1) Bright red blood per rectum Assessment & Plan: This is a 49-year-old female with bright red blood per rectum and abdominal pain and leukocytosis as well as CT with acute sigmoid diverticulitis. Patient seen and evaluated. Chart reviewed. Labs reviewed. On examination patient with abdominal tenderness mainly in the left side and lower abdomen. CT scan reviewed and noted. No acute surgical intervention planned at this time. Will follow with serial abdominal examinations. diet IV antibiotics Patient having episode of acute diverticulitis and bright red bleeding. History of hemorrhoids and noted hemorrhoids on examination. Potentially bleeding hemorrhoids as well as diverticular event versus diverticulosis and diverticulitis no longer bleeding improved will follow with recommendations thank you for this consultation (2) Diverticulitis Assessment & Plan: Findings: At the level of the mid sigmoid, there is what may be an unusual appearing diverticulum, with associated slight stranding of the perisigmoid fat. No other diverticula demonstrated. The appendix is not definitely visualized, but no findings to suggest acute appendicitis are evident. No small bowel distention. No free or loculated intraperitoneal gas or fluid is evident. The distal esophagus, stomach , duodenum are unremarkable. The liver is markedly enlarged. There is diffuse low-attenuation, consistent with fatty change. No focal abnormality. There is some sparing in segment 5 laterally. The gallbladder, bile ducts, pancreas are unremarkable. The spleen is enlarged, measuring 14.3 cm long axis dimension. The adrenals and kidneys are unremarkable. There are numerous but nonenlarged retroperitoneal nodes demonstrated. No pelvic mass or adenopathy. There is a small exophytic fibroid coming off of the uterus. The bladder is unremarkable. The included lung bases are clear. The bones are unremarkable. Impression: Somewhat unusual appearing isolated sigmoid diverticula with slight stranding of the peridiverticular fat, suspicious for early acute diverticulitis Enlarged fatty liver Borderline splenomegaly Incidental finding of small exophytic uterine fibroid (3) Lower GI bleed Jamie Lipscomb Jul 30, 2019 10:47
--- NOTE | 2019-07-30 11:16 | GI Progress Note ---
Assessment/Plan Problems: (1) Lower GI bleed ICD Codes: K92.2 - Gastrointestinal hemorrhage, unspecified SNOMED: 12600922 (2) Diverticulitis ICD Codes: K57.92 - Diverticulitis of intestine, part unspecified, without perforation or abscess without bleeding SNOMED: 539079877 (3) Bright red blood per rectum ICD Codes: K62.5 - Hemorrhage of anus and rectum SNOMED: 72218248 Status: stable Status Narrative Discussed with Dr. Schaefer. Assessment/Plan okay for DC per GI standpoint if tolerates regular diet ok to advance to regular diet IV Abx >> transition to PO Cipro + Flagyl x 10 days after dc pain mgmt fu labs Pt will require colonoscopy x 2 months after dc date. The patient was seen and examined at bedside and all new and available data was reviewed in the patients chart. I agree with the above findings, impression and plan. (Patient seen earlier today. Signature stamp does not reflect patient encounter time.). - Eliot Schaefer MD Subjective Gastrointestinal/Abdominal: Reports: no symptoms Objective Last 24 Hour Vital Signs Date Time Temp Pulse Resp B/P (MAP) Pulse Ox O2 Delivery O2 Flow Rate FiO2 07/30/19 08:54 Room Air 07/30/19 08:00 98.2 87 16 153/94 (113) 95 07/30/19 04:00 97.8 70 18 139/95 (110) 94 07/30/19 00:00 97.6 83 18 138/88 (105) 94 07/29/19 21:00 Room Air 07/29/19 20:00 98.0 76 18 151/92 (111) 96 07/29/19 16:00 97.1 74 19 157/98 (117) 94 07/29/19 12:00 98.9 75 18 139/79 (99) 100 Intake and Output 07/29/19 07/30/19 19:00 07:00 Intake Total 1580 ml 500 ml Balance 1580 ml 500 ml Intake Oral 480 ml IV Total 1100 ml 500 ml # Voids 3 2 Laboratory Tests Test 07/30/19 05:35 White Blood Count 11.1 K/UL (4.8-10.8) H Red Blood Count 3.70 M/UL (4.20-5.40) L Hemoglobin 10.8 G/DL (12.0-16.0) L Hematocrit 32.4 % (37.0-47.0) L Mean Corpuscular Volume 88 FL (80-99) Mean Corpuscular Hemoglobin 29.2 PG (27.0-31.0) Mean Corpuscular Hemoglobin Concent 33.4 G/DL (32.0-36.0) Red Cell Distribution Width 12.1 % (11.6-14.8) Platelet Count 214 K/UL (150-450) Mean Platelet Volume 7.1 FL (6.5-10.1) Neutrophils (%) (Auto) 71.0 % (45.0-75.0) Lymphocytes (%) (Auto) 21.5 % (20.0-45.0) Monocytes (%) (Auto) 4.8 % (1.0-10.0) Eosinophils (%) (Auto) 2.0 % (0.0-3.0) Basophils (%) (Auto) 0.7 % (0.0-2.0) Sodium Level 145 MMOL/L (136-145) Potassium Level 3.6 MMOL/L (3.5-5.1) Chloride Level 110 MMOL/L (98-107) H Carbon Dioxide Level 27 MMOL/L (21-32) Blood Urea Nitrogen 1 mg/dL (7-18) L Creatinine 0.7 MG/DL (0.55-1.30) Estimat Glomerular Filtration Rate > 60 mL/min (>60) Glucose Level 98 MG/DL (74-106) Calcium Level 9.1 MG/DL (8.5-10.1) Height (Feet): 5 Height (Inches): 3.00 Weight (Pounds): 207 General Appearance: WD/WN, no apparent distress, alert Cardiovascular: normal rate Respiratory/Chest: normal breath sounds, no respiratory distress Abdominal Exam: normal bowel sounds, non tender, soft Extremities: non-tender Tenzin Farias [employer] Jul 30, 2019 11:16
[2019-07-30 11:50] VITALS: BP 145/91
--- NOTE | 2019-07-30 13:05 | Infectious Diseases Prog Note ---
Assessment/Plan Assessment/Plan Hematochezia Probable early acute diverticulitis -CT abd/p: Somewhat unusual appearing isolated sigmoid diverticula with slight stranding of the peridiverticular fat, suspicious for early acute diverticulitis. Enlarged fatty liver. Borderline splenomegaly. Incidental finding of small exophytic uterine fibroid Afebrile Mild Leukocytosis, SP -u/a neg -CXR: no acute disease Bipolar disorder Plan: -Continue Ceftriaxone #4/ and Flagyl #4/7 for diverticulitis -07/26 SP Cipro x1 -Monitor CBC/CMP, temperatures -GI f/u Thank you for this consultation. Will continue to follow along with you. Subjective Allergies: Coded Allergies: CODEINE (Verified Allergy, Unknown, 07/26/19) NAPROXEN (Verified Allergy, Unknown, 07/26/19) Subjective Afebrile Mild Leukocytosis Objective Vital Signs Last 24 Hour Vital Signs Date Time Temp Pulse Resp B/P (MAP) Pulse Ox O2 Delivery O2 Flow Rate FiO2 07/30/19 11:50 98.1 74 16 145/91 (109) 96 07/30/19 08:54 Room Air 07/30/19 08:00 98.2 87 16 153/94 (113) 95 07/30/19 04:00 97.8 70 18 139/95 (110) 94 07/30/19 00:00 97.6 83 18 138/88 (105) 94 07/29/19 21:00 Room Air 07/29/19 20:00 98.0 76 18 151/92 (111) 96 07/29/19 16:00 97.1 74 19 157/98 (117) 94 Height (Feet): 5 Height (Inches): 3.00 Weight (Pounds): 207 Objective General Appearance: no apparent distress HEENT; NCAT, MMM, EOMI Respiratory: CTAB, No W Cardiovascular: regular rate, rhythm, no edema Gastrointestinal: normal bowel sounds, non tender, soft, non-distended, no guarding, no rebound Laboratory Tests Test 07/30/19 05:35 White Blood Count 11.1 K/UL (4.8-10.8) H Red Blood Count 3.70 M/UL (4.20-5.40) L Hemoglobin 10.8 G/DL (12.0-16.0) L Hematocrit 32.4 % (37.0-47.0) L Mean Corpuscular Volume 88 FL (80-99) Mean Corpuscular Hemoglobin 29.2 PG (27.0-31.0) Mean Corpuscular Hemoglobin Concent 33.4 G/DL (32.0-36.0) Red Cell Distribution Width 12.1 % (11.6-14.8) Platelet Count 214 K/UL (150-450) Mean Platelet Volume 7.1 FL (6.5-10.1) Neutrophils (%) (Auto) 71.0 % (45.0-75.0) Lymphocytes (%) (Auto) 21.5 % (20.0-45.0) Monocytes (%) (Auto) 4.8 % (1.0-10.0) Eosinophils (%) (Auto) 2.0 % (0.0-3.0) Basophils (%) (Auto) 0.7 % (0.0-2.0) Sodium Level 145 MMOL/L (136-145) Potassium Level 3.6 MMOL/L (3.5-5.1) Chloride Level 110 MMOL/L (98-107) H Carbon Dioxide Level 27 MMOL/L (21-32) Blood Urea Nitrogen 1 mg/dL (7-18) L Creatinine 0.7 MG/DL (0.55-1.30) Estimat Glomerular Filtration Rate > 60 mL/min (>60) Glucose Level 98 MG/DL (74-106) Calcium Level 9.1 MG/DL (8.5-10.1) Current Medications Medications (Trade) Dose Ordered Sig/Oz Route PRN Reason Start Time Stop Time Status Last Admin Dose Admin Acetaminophen (Tylenol) 650 mg Q6H PRN ORAL Mild Pain/Temp > 100.5 07/27/19 01:30 08/26/19 01:29 07/29/19 08:18 Ceftriaxone Sodium 1 gm/ Dextrose 55 ml @ 110 mls/hr Q24H IVPB 07/27/19 02:00 08/03/19 01:59 07/30/19 02:42 Clonidine HCl (Catapres Tab) 0.1 mg Q4H PRN ORAL >160 SYSTOLE 07/27/19 07:30 08/26/19 07:29 07/28/19 01:10 Citrus Carbonate (Citrus Carbonate) 1,200 mg QHS ORAL 07/30/19 21:00 08/29/19 20:59 Metronidazole (Flagyl) 500 mg Q8HR ORAL 07/27/19 22:00 08/03/19 21:59 07/30/19 06:22 Olanzapine (ZyPREXA) 10 mg DAILY ORAL 07/27/19 09:00 08/26/19 08:59 07/30/19 09:42 Ondansetron HCl (Zofran) 4 mg Q4H PRN IVP Nausea & Vomiting 07/27/19 01:30 08/26/19 01:29 07/29/19 22:07 Sertraline HCl (Zoloft) 100 mg DAILY ORAL 07/27/19 09:00 08/26/19 08:59 07/30/19 09:42 Paul Foster MD Jul 30, 2019 13:05
[2019-07-30] MEDS ORDERED: CIPRO500 MG/51 PO (13:43)
[2019-07-30] MEDS ORDERED: FLAGYL500 MG ORAL (13:43)
--- NOTE | 2019-07-30 14:31 | NUR ---
RD ASSESSMENT & RECOMMENDATIONS SEE CARE ACTIVITY FOR COMPLETE ASSESSMENT DAILY ESTIMATED NEEDS: Needs based on Obesity 62.7kg adj 25-30 kcals/kg 1842-0538 total kcals 1-1.2 g protein/kg 63-75 g total protein 25-30 mL/kg 5469-1256 total fluid mLs NUTRITION DIAGNOSIS: Decreased sodium and fat needs r/t elev BP and obesity as evidenced by pt w/ consistently elev BP, obese per guidelines, pt is 180% of ideal body weight. CURRENT DIET: Full liquid- now Regular PO DIET RECOMMENDATIONS: Cardiac/ LOW FIBER diet ADDITIONAL RECOMMENDATIONS: 1) Obtain a standing weight as able 2) W/ possible diverticulitis, rec LOW FIBER DIET 3) Monitor tolerance to upgraded diet
--- NOTE | 2019-07-30 15:14 | NUR ---
NURSE NOTES: Contacted Dr. Foster regarding discharge PO Abx need to be called into pt's pharmacy. Provided MD with Pharmacy name and number, abx ordered with doses, and pt's
--- NOTE | 2019-07-30 15:55 | NUR ---
NURSE NOTES: Pt discharged with all belongings, DC paperwork reviewed and signed by pt. DC abx called in to pt's pharmacy by Dr. Foster. IV removed, intact, ID band removed, pt ambulatory, accompanied by . Pt stable for discharge.
--- NOTE | 2019-07-30 19:47 | Discharge Summary ---
Discharge Summary Discharge Summary _ DATE OF ADMISSION: 07/26/2019 DATE OF DISCHARGE: 07/30/2019 DISCHARGED BY: Dr. Lancaster REASON FOR ADMISSION: 49 years old female with no significant past medical history, presented to ED after multiple episodes of bright red blood per rectum with bowel movement. Patient was at work when she developed abdominal cramping and then became lightheaded and had syncopal episode. Patient denied any trauma. She denied recent illness. She denied diarrhea. She denied traveling outside of the country. Upon evaluation vital signs were stable. Laboratory work-up revealed mild leukocytosis 14.1, hemoglobin 12.3, hematocrit 33.6. Platelet count 217. Electrolytes were stable. Glucose 143. AST slightly elevated 42, ALT 67. Troponin was negative. Albumin 3.5. Urinalysis revealed no evidence of urinary tract infection. Urine toxicology screen was negative. Chest x-ray demonstrated no acute cardiopulmonary pathology. CT of the abdomen and pelvis revealed isolated sigmoid diverticula with slight stranding of the peridiverticular fat, suspicious for early acute diverticulitis. Enlarged fatty liver. Borderline splenomegaly. Incidental finding of small exophytic uterine fibroid. Patient subsequently admitted for further management. CONSULTANTS: hospitalist Dr. George ID specialist Dr. Meyers GI specialist Dr. Schaefer surgery [facility] COURSE: Patient admitted to medical surgical floor. Patient initially was n.p.o. IV fluids provided. Bowel rest maintained. Patient started on empiric antibiotic. Bowel regimen instituted. Pain management was addressed. GI and surgeon followed. Hemoglobin and hematocrit were closely monitored with goal to keep hemoglobin above 7. Prior to discharge hemoglobin 10.8 , hematocrit 32.4. Symptomatic treatment provided. Colonoscopy was on hold due to acute diverticulitis. Diet was slowly started and was advanced as tolerated. Patient was able to tolerate diet. Antiemetic were on board as needed. GI specialist recommended colonoscopy in 6-8 weeks. Patient was on IV antibiotic as per ID specialist recommendation. Upon discharge, leukocytosis down to 11.1, no fevers. Patient will need to complete oral antibiotic upon discharge as recommended by ID specialist. Surgeon followed. Hemorrhoids were noted on examination. Rectal bleeding was potentially hemorrhoidal as well as the diverticular event. No need for acute surgical intervention. Supportive care provided. Pain management was addressed. Psychiatric medication continued . Supplemental oxygen and pulmonary toilet with bronchodilator implemented as needed. Pulse oximetry was stable on room air. Patient clinically stabilized and was ready for discharge home. FINAL DIAGNOSES: Acute sigmoid diverticulitis Rectal bleeding, likely due to diverticular bleeding and possible hemorrhoidal bleeding Hemorrhoids Anemia Abdominal pain , likely due to acute diverticulitis Leukocytosis Presumed obstructive sleep apnea Morbid obesity Bipolar disorder DISCHARGE MEDICATIONS: See Medication Reconciliation list. DISCHARGE INSTRUCTIONS: Patient was discharged home. Follow up with primary care provider in one week. Outpatient colonoscopy was recommended in 6-8 weeks. Maryam Ortega NP Jul 30, 2019 19:47
== END 2019-07-30 15:55 | disposition home or self-care (01) | DRG 379 ==
LOC: EDBD 18:10 → EMR 18:46 → 4E 22:51 → EDBEDREQ 23:54 → 4E 07-27 08:28
DX: K57.33 Diverticulitis of large intestine without perforation or abscess with bleeding (principal); Z88.6 Allergy status to analgesic agent; F31.9 Bipolar disorder, unspecified; E66.01 Morbid (severe) obesity due to excess calories; G47.33 Obstructive sleep apnea (adult) (pediatric); K64.9 Unspecified hemorrhoids; D64.9 Anemia, unspecified
CPT/HCPCS: 36415; 71045; 74177; 80048; 80053; 80307; 81003; 82378; 82550; 82553; 83540; 83550; 83605; 83615; 83735; 84100; 84484; 85025; 85044; 85610; 85651; 85730; 86140; 86850; 86900; 86901; 86920; 93005; 96361; 96365; 96375; 99285; J2405